=== PATIENT | female | born 1950 | race Caucasian/White ===

== ENCOUNTER 2019-03-21 01:17 | Outpatient (CLI) | payer MEDICARE, BC, SELFPAY ==
[2019-03-21 13:47] LABS: ALT 29 U/L (12-78); AST 22 U/L (15-37); Albumin 3.8 g/dL (3.4-5.0); Alkaline Phosphatase 102 U/L (46-116); Anion Gap 9.7 mmol/L (3-11); BUN 19 mg/dL (7-18); Bilirubin, Total 0.7 mg/dL (0.2-1.0); CO2 27.3 mmol/L (21.0-32.0); CREATININE 0.99 mg/dL (0.55-1.02); Chloride 103 mmol/L (98-107); Cholesterol 163 mg/dL (50-200); Estimated GFR 55.78 (mL/min/1.73m2); Glucose 87 mg/dL (70-100); HDL Cholesterol 64 mg/dL (40-60); LDL CHOLESTEROL 83 mg/dL (<100); Magnesium 1.7 mg/dL (1.8-2.4); Potassium 4.6 mmol/L (3.5-5.1); Sodium 140 mmol/L (136-145); Total Protein 6.9 g/dL (6.4-8.2); Triglyceride 84 mg/dL (30-150); Vitamin B12 461 pg/mL (193-986)
[2019-03-24 13:01] LABS: Vitamin D 25 Total 17.4 ng/ml (30-100)
== END 2019-03-21 01:37 ==
PROVIDERS: PCP Family Medicine; Visit Provider Family Medicine
DX: E55.9 Vitamin D deficiency, unspecified (principal); K63.89 Other specified diseases of intestine; K91.2 Postsurgical malabsorption, not elsewhere classified
CPT/HCPCS: 36415; 80053; 80061; 82306; 83721; 82607; 83735

== ENCOUNTER 2020-03-23 01:45 | Outpatient (CLI) | payer MEDICARE, BC, SELFPAY ==
[2020-03-23 08:44] LABS: HGB 13.7 g/dL (12.0-15.5); Mean Corp. HGB Concentration 32.6 g/dL (32.0-36.0); Mean Corpuscular Hemoglobin 30.6 pg (27.0-33.0); Mean Corpuscular Volume 93.8 fL (80-95); Mean Platelet Volume 10.9 fL (8.0-11.0); Platelet Count 207 x1000/uL (130-400); RBC 4.48 m/cumm (4.00-5.20); RBC Distribution Width 13.4 % (11.7-14.6); White Blood Cell Count 7.01 k/cumm (4.4-10.8)
[2020-03-23 10:19] LABS: ALT 38 U/L (14-59); AST 23 U/L (15-37); Albumin 3.8 g/dL (3.4-5.0); Alkaline Phosphatase 97 U/L (46-116); Anion Gap 6.1 mmol/L (3-11); BUN 21 mg/dL (7-18); Bilirubin, Total 0.8 mg/dL (0.2-1.0); CO2 28.9 mmol/L (21.0-32.0); CREATININE 1.02 mg/dL (0.55-1.02); Calcium 9.2 mg/dL (8.5-10.1); Chloride 103 mmol/L (98-107); Estimated GFR 53.73 (mL/min/1.73m2); Glucose 86 mg/dL (74-106); Magnesium 1.9 mg/dL (1.8-2.4); Potassium 4.1 mmol/L (3.5-5.1); Sodium 138 mmol/L (136-145); Total Protein 6.9 g/dL (6.4-8.2); Vitamin B12 555 pg/mL (193-986)
[2020-03-25 14:42] LABS: Vitamin D 25 Total 34.6 ng/ml (30-100)
== END 2020-03-23 02:05 ==
PROVIDERS: PCP Family Medicine; Visit Provider Family Medicine
DX: E55.9 Vitamin D deficiency, unspecified (principal); G25.81 Restless legs syndrome; K55.9 Vascular disorder of intestine, unspecified; K63.89 Other specified diseases of intestine; K91.2 Postsurgical malabsorption, not elsewhere classified
CPT/HCPCS: 36415; 80053; 82306; 85027; 82607; 83735

== ENCOUNTER 2020-08-23 02:07 | Outpatient (CLI) | payer MEDICARE, BC, SELFPAY ==
[2020-08-23 12:44] LABS: Vitamin D 25 Total 33.2 ng/ml (30-100)
== END 2020-08-23 02:27 ==
PROVIDERS: PCP Family Medicine; Visit Provider Family Medicine
DX: E55.9 Vitamin D deficiency, unspecified (principal)
CPT/HCPCS: 36415; 82306

== ENCOUNTER 2021-06-24 13:28 | Outpatient (CLI) | payer MEDICARE, BC, SELFPAY ==
--- NOTE | 2021-06-24 14:52 | DI.RAD_ITS ---
Exam(s) XR SHOULDER RT COMPLETE 2+V EXAM: XR SHOULDER RT COMPLETE 2+V CLINICAL HISTORY: r shoulder pain; surgery 20 years ago M25.511 PAIN RT SHOULDER TECHNIQUE: COMPARISON: No exams were available for comparison FINDINGS: Five views were obtained. Note is made of a prior resection of the distal aspect of the clavicle. T here appears to be slight narrowing of the glenohumeral cartilaginous joint space. Mild marginal ost eophytes are noted the glenoid humeral head. No other significant bony or soft tissue abnormality se en. IMPRESSION: RADIATION DOSE DELIVERED: Total DLP
== END 2021-06-24 13:48 ==
PROVIDERS: PCP Family Medicine; Visit Provider Family Medicine
DX: M25.511 Pain in right shoulder (principal); M25.711 Osteophyte, right shoulder; M19.011 Primary osteoarthritis, right shoulder
CPT/HCPCS: 73030

== ENCOUNTER 2021-08-19 01:10 | Outpatient (CLI) | payer MEDICARE, BC, SELFPAY ==
--- NOTE | 2021-08-19 07:30 | DI.MRI_ITS ---
Exam(s) MR UPPER JOINT RT WO EXAM: MR UPPER JOINT RT WO CLINICAL HISTORY: ROTATOR CUFF TEAR/FAILED PT,RT SHOULDER PAIN,M25.511,M12.819,M75.100,ARTHRO. TECHNIQUE: Multiplanar multisequence MRI was performed. COMPARISON: CR XR SHOULDER RT COMPLETE 2+V from 06/24/2021 CR XR SHOULDER RT COMPLETE 2+V from 06/24/2021 FINDINGS: BONES: There is no fracture or contusion pattern. Subchondral cysts are seen in the greater tuberosi ty. There are postsurgical changes of the acromioclavicular joint. JOINTS: Postsurgical changes are seen at the acromioclavicular joint. The glenohumeral joint is norm al. TENDONS: Supraspinatus: There is tendinosis of the supraspinatus. There is hyperintense signal seen at the ar ticular surface of the tendon suspicious for partial tear. Infraspinatus: There is tendinosis of the infraspinatus tendon. Subscapularis: Unremarkable. Teres Minor: Unremarkable. Biceps and Weir: Unremarkable. MUSCLES: Unremarkable. GLENOID LABRUM: Unremarkable on this noncontrast examination. SOFT TISSUES: Unremarkable. LIGAMENTS: Unremarkable. OTHER: There is fluid seen in the subacromial subdeltoid bursa. IMPRESSION: 1. Tendinosis of the supraspinatus and infraspinatus tendons. 2. Findings suspicious for partial or bursal surface tear of the supraspinatus tendon. 3. Postsurgical changes at the acromioclavicular joint. 4. Large amount of fluid seen in the subacromial subdeltoid bursa. DATA REPOSITORY:
== END 2021-08-19 01:30 ==
PROVIDERS: PCP Family Medicine; Visit Provider Family Medicine
DX: M25.511 Pain in right shoulder (principal); M75.101 Unspecified rotator cuff tear or rupture of right shoulder, not specified as traumatic; M25.411 Effusion, right shoulder; M75.81 Other shoulder lesions, right shoulder; Z98.890 Other specified postprocedural states
CPT/HCPCS: 73221

== ENCOUNTER → 2021-08-24 10:53 | Outpatient (BNVA) | payer MEDICARE, BC, SELFPAY | PROVIDERS: PCP Family Medicine; Referring Provider Family Medicine; Visit Provider Student in an Organized Health Care Education/Training Program | DX: M75.111 Incomplete rotator cuff tear or rupture of right shoulder, not specified as traumatic (principal); M75.51 Bursitis of right shoulder | CPT/HCPCS: 99203 ==

== ENCOUNTER → 2021-10-12 08:57 | Outpatient (BNVA) | payer MEDICARE, BC, SELFPAY | PROVIDERS: PCP Family Medicine; Referring Provider Family Medicine; Visit Provider Student in an Organized Health Care Education/Training Program | DX: M19.011 Primary osteoarthritis, right shoulder (principal); M75.21 Bicipital tendinitis, right shoulder; M75.51 Bursitis of right shoulder; M75.111 Incomplete rotator cuff tear or rupture of right shoulder, not specified as traumatic | CPT/HCPCS: 20610; 99213; J1030 ==

== ENCOUNTER → 2021-12-14 09:01 | Outpatient (BNVA) | payer MEDICARE, SELFPAY | PROVIDERS: PCP Family Medicine; Visit Provider Student in an Organized Health Care Education/Training Program | DX: M75.51 Bursitis of right shoulder (principal); M75.111 Incomplete rotator cuff tear or rupture of right shoulder, not specified as traumatic; M75.21 Bicipital tendinitis, right shoulder; M19.011 Primary osteoarthritis, right shoulder | CPT/HCPCS: 99214 ==

== ENCOUNTER 2022-01-26 02:02 | Outpatient (CLI) | payer MEDICARE, SELFPAY ==
--- NOTE | 2022-01-26 08:00 | DI.RAD_ITS ---
Exam(s) RF JOINT INJECTION FLUORO GUID EXAM: RF JOINT INJECTION FLUORO GUID CLINICAL HISTORY: R SHOULDER PAIN,m19.011,primary m19.011. TECHNIQUE: 2D and realtime digital imaging was performed. COMPARISON: No exams were available for comparison FINDINGS: Fluoroscopy was provided for Dr. Redding for guidance with performing a right shoulder injection. H dale copy image shows a needle projecting over the femoral head and contrast injection. Please see procedure note for details. Fluoro time 1 second RADIATION DOSE DELIVERED: helder Rios=1.07 mGy
--- NOTE | 2022-01-26 14:00 | W.PROCNOTE ---
Date of service: 01/26/22 Time of Service: 14:00 Procedure Note Procedure: Right Shoulder Injection Surgeon/Proceduralist/Physician: Jose Redding Procedure Diagnosis: Right Shoulder Pain Procedure Indications: Susannah has had persistent pain of the RIGHT shoulder. Noninvasive measures have been tried. To serve as both diagnostic and therapeutic, an injection under fluoroscopy was recommended. I had discussed the risks of the procedure and the patient elected to proceed. Procedure Description: Susannah was greeted in the flouroscopy room. The correct side was identified and the consent was reviewed with the patient and signed. The patient was then placed in the supine position on the fluoroscopy table. The RIGHT shoulder was then prepped with Chloraprep. The anterior injection starting point was identiifed by bony landmarks and fluoroscopy. The skin and soft tissue in the tract of the injection was anesthetized with 1% Lidocaine. A spinal needle was then inserted deep into the shoulder joint at the level of the recess between the glenoid and superior humeral head. A small amount of Omnipaque solution was injected to confirm intraarticular placement. This showed the contrast within the joint but also escaping subacromially and into the AC joint space. Then, the shoulder was injected with 4cc of 0.5% Bupivicaine and 80mg of Depo-Medrol. A bandaid was placed on the injection site. The patient tolerated the procedure well.
[2022-01-26] MEDS: Bupivacaine 0.5% Pres-Free 30 ML VIAL IJ (14:29)
[2022-01-26] MEDS: methylPREDNISolone ACETATE 80 MG/ML VIAL IM (14:30)
[2022-01-26] MEDS: Omnipaque 300 MG/ML 10 ML BTL IJ (14:30)
== END 2022-01-26 02:22 ==
PROVIDERS: PCP Family Medicine; Visit Provider Student in an Organized Health Care Education/Training Program
DX: M25.511 Pain in right shoulder (principal)
CPT/HCPCS: 20610; 77002; J1040

== ENCOUNTER → 2022-03-07 13:24 | Outpatient (BNVA) | payer MEDICARE, SELFPAY | PROVIDERS: PCP Family Medicine; Referring Provider Family Medicine; Visit Provider Student in an Organized Health Care Education/Training Program | DX: M75.51 Bursitis of right shoulder (principal); M75.111 Incomplete rotator cuff tear or rupture of right shoulder, not specified as traumatic; M75.21 Bicipital tendinitis, right shoulder | CPT/HCPCS: 99213 ==

== ENCOUNTER 2022-05-09 02:46 | Outpatient (CLI) | payer MEDICARE, SELFPAY ==
[2022-05-09 12:29] LABS: HCT 40.9 % (36.0-46.0); MCH 29.7 pg (27.0-33.0); MCHC 31.8 % (32.0-36.0); MCV 94 fL (80-95); MPV 11.8 fL (8.0-11.0); Platelet Count 185 10^3/uL (130-400); RBC 4.37 10^6/uL (3.93-5.22); RDW 13.4 % (11.7-14.6); RDW-SD 45.8 fL
[2022-05-09 13:24] LABS: ALT 38 U/L (14-59); AST 26 U/L (15-37); Albumin 3.5 g/dL (3.4-5.0); Alkaline Phosphatase 93 U/L (46-116); Anion Gap 9.5 mmol/L (3-11); BUN 26 mg/dL (7-18); Bilirubin, Total 0.6 mg/dL (0.2-1.0); CO2 28.5 mmol/L (21.0-32.0); CREATININE 1.2 mg/dL (0.55-1.02); Calcium 8.6 mg/dL (8.5-10.1); Calculated LDL 72 mg/dL (<100); Chloride 106 mmol/L (98-107); Cholesterol 152 mg/dL (<200); Estimated GFR 44.29 (mL/min/1.73m2); Glucose 80 mg/dL (74-106); HDL Cholesterol 63 mg/dL (40-60); Potassium 3.8 mmol/L (3.5-5.1); Sodium 144 mmol/L (136-145); TSH (W/Ref FT4) 8.05 uIU/mL (0.36-3.74); Total Protein 6.7 g/dL (6.4-8.2); Triglyceride 85 mg/dL (<150); Vitamin B12 1484 pg/mL (193-986)
[2022-05-09 13:49] LABS: FREE T4 0.79 ng/dL (0.76-1.46)
[2022-05-11 05:24] LABS: Vitamin D 25 Total 32.4 ng/mL (30-100)
== END 2022-05-09 02:47 | disposition home or self-care (01) ==
LOC: LOS 02:46
PROVIDERS: PCP Family Medicine; Visit Provider Family Medicine
DX: E55.9 Vitamin D deficiency, unspecified (principal); K63.89 Other specified diseases of intestine; K91.2 Postsurgical malabsorption, not elsewhere classified; K55.9 Vascular disorder of intestine, unspecified; R63.4 Abnormal weight loss
CPT/HCPCS: 36415; 80053; 80061; 82306; 85027; 82607; 84439; 84443

== ENCOUNTER 2022-06-21 02:43 | Outpatient (CLI) | payer MEDICARE, SELFPAY ==
[2022-06-21 10:26] LABS: ALT 37 U/L (14-59); AST 22 U/L (15-37); Albumin 3.6 g/dL (3.4-5.0); Alkaline Phosphatase 101 U/L (46-116); Anion Gap 6.4 mmol/L (3-11); BUN 21 mg/dL (7-18); Bilirubin, Total 0.5 mg/dL (0.2-1.0); CO2 31.6 mmol/L (21.0-32.0); CREATININE 1.1 mg/dL (0.55-1.02); Calcium 9.1 mg/dL (8.5-10.1); Chloride 106 mmol/L (98-107); Estimated GFR 48.96 (mL/min/1.73m2); Glucose 104 mg/dL (74-106); Potassium 4.1 mmol/L (3.5-5.1); Sodium 144 mmol/L (136-145); TSH (W/Ref FT4) 1.59 uIU/mL (0.36-3.74); Total Protein 7.1 g/dL (6.4-8.2)
== END 2022-06-21 02:44 | disposition home or self-care (01) ==
LOC: LBO 02:43
PROVIDERS: PCP Family Medicine; Visit Provider Family Medicine
DX: N28.9 Disorder of kidney and ureter, unspecified (principal); E03.9 Hypothyroidism, unspecified
CPT/HCPCS: 36415; 80053; 84443

== ENCOUNTER → 2022-08-16 10:29 | Outpatient (BNVA) | payer MEDICARE, SELFPAY | PROVIDERS: PCP Family Medicine; Referring Provider Family Medicine; Visit Provider Surgery | DX: K91.2 Postsurgical malabsorption, not elsewhere classified (principal); Z12.11 Encounter for screening for malignant neoplasm of colon ==

== ENCOUNTER 2022-08-23 03:25 | Outpatient (CLI) | payer MEDICARE, SELFPAY ==
[2022-08-23 12:50] LABS: CREATININE 0.9 mg/dL (0.55-1.02); Estimated GFR 67.92 (mL/min/1.73m2); TSH (W/Ref FT4) 1.89 uIU/mL (0.36-3.74)
== END 2022-08-23 03:26 | disposition home or self-care (01) ==
LOC: LOS 03:25
PROVIDERS: PCP Family Medicine; Visit Provider Family Medicine
DX: E03.9 Hypothyroidism, unspecified (principal); Z01.812 Encounter for preprocedural laboratory examination
CPT/HCPCS: 36415; 82565; 84443

== ENCOUNTER 2022-08-31 09:05 | Day surgery (SDC) | payer MEDICARE, SELFPAY ==
--- NOTE | 2022-08-30 20:49 | W.PM.DSUDISC ---
Date of service: 08/31/22 Time of Service: 10:35 Discharge Plan Disposition Patient Disposition: HOME Condition: Good Discharge Details Reason For Visit: Screening colonoscopy Attending Provider: Jonh Renee Primary Care Provider: Carol Ann Shah Home Meds and New Rx's Prescriptions: Continued Adult 50 Plus Probiotic 4 billion cell capsule 4,000 mmu cells PO DAILY Rx Instructions: administer with a meal vitamin K2 100 mcg capsule 100 mcg PO DAILY Label Comments: (MK7) Magnesium 225 mcg PO Label Comments: (Citrate, Glycinate, Malate) Plus Zinc 7.5mg Plus D3 25mcg Ibuprofen PM 200-25 mg capsule 1 cap PO QHS PRN tretinoin 20 GM cream 1 applic Topical DAILY Vitamin C Cream 1 applic Topical DAILY Centrum Silver 0.4-300-250 mg-mcg-mcg tablet 1 tab PO DAILY cholecalciferol (vitamin D3) 50 mcg (2,000 unit) tablet 50 mcg PO DAILY Qty: 90 4RF ergocalciferol (vitamin D2) [Vitamin D2] 1,250 mcg (50,000 unit) capsule 50,000 unit PO QWEEK Qty: 12 12RF levothyroxine 50 mcg tablet 50 mcg PO DAILY Qty: 90 6RF estradiol [Vagifem] 10 mcg tablet 10 mcg VG twice weekly Qty: 24 12RF cyanocobalamin (vitamin B-12) 1,000 mcg capsule 2,000 mcg PO DAILY acetaminophen [Tylenol] 325 MG tablet 650 mg PO Q4H PRN PRNQty: 30 0RF Discontinued polyethylene glycol 3350 17 gram/dose powder 238 g PO ONCE Qty: 238 0RF Rx Instructions: take per colonoscopy instructions bisacodyl [Dulcolax (bisacodyl)] 5 mg tablet,delayed release (DR/EC) 5 mg PO ONCE Qty: 4 0RF Rx Instructions: take per colonoscopy instructions Discharge Instructions Instructions: Colorectal Polyps (DC) Additional Instructions: 1. If tolerated, consume a soft, low fiber diet for 1-2 days. 2[address] Do not drive, drink alcohol, operate machinery, make critical decisions, or do activities that require coordination or balance for 24 hours. 3. Because air was put into your colon during the procedure, expelling air from your rectum (passing gas or farting) is normal. 4. You may not have a bowel movement for 1-3 days because of the colonoscopy prep. This is normal. 5. Go directly to the emergency room if you notice any of the following: Develop chills (warm to touch), or if you have a thermometer and your temperature is above 101 Difficulty breathing or difficultly swallowing Persistent vomiting Severe abdominal pain, other than gas cramps Severe chest pain Black, tarry stools Any bleeding ? exceeding one tablespoon 6. Call your physician if the site where your intravenous was started becomes red, swollen, painful, and warm to touch. 7. Your physician has reviewed your pre-procedure medications. Please continue to take those medications as previously ordered. You will be given specific information/education regarding any changes to your medications before leaving. Activity:: Activity as Tolerated Diet:: As Tolerated Discharge Orders Discharge Orders: Discharge Order (Routine); Ordered 08/30/22 Ordered By: Jonh Renee DS: Diagnosis Discharge Diagnosis (1) Colorectal polyp detected on colonoscopy: Status: Acute Asessment and Plan: I will contact you with results of the biopsy once they are available.
--- NOTE | 2022-08-30 20:50 | W.COLOREPORT ---
Date of service: 08/31/22 Time of Service: 10:36 Colonoscopy Report Date of procedure: 08/31/22 Pre-op diagnosis general: Screening colonoscopy routine health maintenance Post-op diagnosis procedure note: other (Colorectal polyp) Procedure: Screening colonoscopy Surgeon: Jonh Renee Anesthesia Type: General:No Airway Estimated blood loss (mL): 10 Pathology: other (Rectal polyp at 15 cm) Complications: None Disposition: same day Indications: Susannah is a 72-year-old woman who was undergone screening colonoscopy in the past. In the interim, she developed a GI volvulus requiring extensive small bowel resection and jejunal colon anastomosis. She is presenting today for a routine screening colonoscopy. Prep: Miralax/Dulcolax Procedure Start Time: 10:06 Procedure End Time: :27 Retraction Time: 19 Procedure Description: After the induction of monitored anesthetic care, and with the patient in left lateral decubitus position, I began by performing an external anorectal exam.? Perineum and skin were normal, as was the anal verge.? There was no evidence of external hemorrhoids.? Next, I performed a digital rectal exam.? I did not appreciate any abnormal findings.? Next, I advanced a colonoscope into the rectal vault.? I performed retroflexion.? I did not see signs of pathologic internal hemorrhoids.? Using insufflation, I then advanced the colonoscope beyond the rectal folds and into the sigmoid colon before advancing towards the proximal colon.? The quality of the prep was adequate.? The scope was advanced to the staple line of the previous small bowel colonic anastomosis.? I then began withdrawing the colonoscope using repeated irrigation as necessary for full evaluation of the colonic mucosa. ?Once the scope was withdrawn to the level of the rectum, great care was taken to examine portions of the rectal folds.?Around 15 cm from the anal verge I identified a 0.5 polyp. ?It appeared sessile in character. ?I was able to remove this with a cold forcep. ?I examined the site, and there was minimal bleeding. ?Once this was completed, I continued to withdraw the scope and examine the remainder of the colonic mucosa. Finally, the scope was withdrawn and the patient was brought to the same-day surgery recovery unit as the anesthetic wore off. ?The findings and instructions were shared with the patient prior to discharge.
[2022-08-31 09:33] VITALS: BP 123/74; PULSE 78; RESP 15; TEMP 36.6; O2SAT 98
[2022-08-31] MEDS: Lactated Ringers 1,000 ML 80 ML IV (09:37)
--- NOTE | 2022-08-31 09:38 | W.ANESPRE ---
General Info Date of Service Date Performed: 08/31/22 Height: 5 ft 11 in Weight: 57.9 kg Body Mass Index (BMI): 17.8 Surgical Procedure: Operation Date: 08/31/22 10:20 Proposed Procedure Side Surgeon john Renee MD Meds Allergies and Home Medications Allergies Allergy/AdvReac Type Severity Reaction Status Date / Time No Known Drug Allergies Allergy Unverified 08/31/22 09:32 Home Medication Medication Instructions Recorded acetaminophen 325 mg tablet 650 mg PO Q4H PRN PRN #30 tabs 10/08/14 (Tylenol) Vitamin C Cream 1 applic topical DAILY 12/23/15 tretinoin 0.05 % topical cream 1 applic topical DAILY 12/23/15 papqlkfy-qoy-rsfpy acid 0.4 1 tab PO DAILY 08/18/20 mg-lycopene 300 mcg-lutein 250 mcg tablet (Centrum Silver) cholecalciferol (vitamin D3) 50 50 mcg PO DAILY #90 tabs 11/10/20 mcg (2,000 unit) tablet Magnesium 225 mcg PO 04/11/21 vitamin K2 100 mcg capsule 100 mcg PO DAILY 04/11/21 ibuprofen 200 mg-diphenhydramine 1 cap PO QHS PRN 10/12/21 HCl 25 mg capsule (Ibuprofen PM) ergocalciferol (vitamin D2) 1,250 50,000 unit PO QWEEK #12 tab-caps 01/10/22 mcg (50,000 unit) capsule (Vitamin D2) levothyroxine 50 mcg tablet 50 mcg PO DAILY #90 tabs 05/11/22 estradiol 10 mcg vaginal tablet 10 mcg vaginal twice weekly #24 06/13/22 (Vagifem) tab-caps cyanocobalamin (vitamin B-12) 2,000 mcg PO DAILY 08/16/22 1,000 mcg capsule lactobacillus combination no.9 4 4,000 mmu cells PO DAILY 08/16/22 billion cell capsule (Adult 50 Plus Probiotic) Current Visit Medications: Current Medications Generic Name Dose Route Start Last Admin Trade Name Freq PRN Reason Stop Dose Admin Hyoscyamine Sulfate 0.125 mg 08/31/22 06:00 Hyoscyamine 0.125 Mg Sl/Oral/Chew SL DIRECTED PRN Ringer's Solution 1,000 mls @ 80 mls/hr 08/31/22 06:00 IV 12/02/22 23:59 INFUSION RONN IV Miscellaneous Supplies 1 each 08/31/22 06:00 Iv Access IV 09/29/22 23:59 DIRECTED RONN Ondansetron HCl 4 mg 08/30/22 20:51 Ondansetron 4 Mg/2 Ml Vial IVP Q4H PRN PRN Nausea / Vomiting Sodium Chloride 0 ml 08/31/22 06:00 Normal Saline Flush 10 Ml Syr IV 09/29/22 23:59 PRN PRN Sodium Chloride 0 ml 08/31/22 06:00 Normal Saline 10 Ml Vial IJ 09/29/22 23:59 DIRECTED PRN Sterile Water 0 ml 08/31/22 06:00 Water,Injection,Sterile 10 Ml Vial IJ 09/29/22 23:59 DIRECTED PRN PFSH Active Problems Active Problems: Problem Status Onset Code Renal insufficiency N28.9 Hypothyroid E03.9 Encounter for screening colonoscopy Z12.11 Arthritis of right shoulder region M19.011 Tendonitis of long head of biceps brachii of right shoulder M75.21 Bursitis of right shoulder M75.51 Rotator cuff tear, right M75.101 Weight loss R63.4 Aphthous ulcer K12.0 Mouth sores K13.79 Wart B07.9 Hip pain M25.559 Vitamin D deficiency 09/17/15 E55.9 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 Vaginal atrophy 01/16/17 N95.2 Small intestinal bacterial overgrowth 12/08/14 K63.89 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 Restless legs syndrome 05/23/12 G25.81 Knee pain 05/23/12 M25.569 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 Abnormal thyroid function test 05/23/12 Migraines G43.909 Medical History Medical History Abnormal Pap history Fibrocystic disease of breast Migraine Surgical History Surgical History Bi[place] of [place] [facility] [place] with adenosis and cysts Cervical Procedure Colposcopy/ Biopsies for AMMON 1 1996 Colectomy SMALL BOWEL RESECTION -10/03/14 Shoulder surgery right; distal clavicle resection Tobacco Smoking/Tobacco Use Status: Never Passive smoking exposure: No Second hand exposure: No Alcohol Alcohol Intake: current Alcohol intake frequency: a few times a month Alcohol type: beer, wine and hard liquor Substance Use Substance use: Never Substance use type: does not use Vital Signs and Lab Results Vital Signs Most Recent Vital Signs in EMR: Most Recent Vital Signs Temp Pulse Resp BP Pulse Ox 36.6 C 78 15 123/74 98 08/31/22 09:33 08/31/22 09:33 08/31/22 09:33 08/31/22 09:33 08/31/22 09:33 Lab Results Blood Type / Crossmatch: No Data to Display Complete Blood Count: No Data to Display Complete Metabolic Panel: Creatinine 0.9 mg/dL (0.55-1.02) 08/23/22 10:44 Est GFR (CKD-EPI 2020) 67.92 (mL/min/1.73m2) 08/23/22 10:44 Liver Function Panel: No Data to Display Coagulation Panel: No Data to Display Cardiac Panel: No Data to Display Arterial Blood Gas: No Data to Display Venous Blood Gas: No Data to Display Pancreas Panel: No Data to Display Thyroid Panel: Thyroid Stimulating Hormone (TSH) 1.89 uIU/mL (0.36-3.74) 08/23/22 10:44 Infectious Disease: No Data to Display Blood Cultures: No Data to Display Toxicology Panel: No Data to Display Anesthesia Assessment and Plan Anesthesia History Personal History: No History of Anesthesia Complications Family History: No Family History of Anesthesia Complications Exercise Tolerance Exercise Tolerance: Metabolic Equivalents>4 Pertinent Negatives Pertinent Negatives: No Symptoms of GERD, No Major Cardiovascular Symptoms or Complaints, No Major Pulmonary Symptoms or Complaints and No History of CVA/TIA Cardiac & Pulmonary Exam Cardiac Exam: Normal S1/S2 Heart Sounds Pulmonary Exam: Clear Bilateral Breath Sounds Implantable Cardiac Device Does patient have a Pacemaker or an ICD?: No Airway Exam Known Difficult Airway: No Mallampati Class: 2 Mouth Opening: Normal (> 3cm) Thyromental Distance: Greater than 3 cm Neck Range of Motion: Full ROM Neck Circumference: Normal Teeth Condition: Normal Dentition ASA Classification ASA Score: ASA 2 Emergency Case?: No NPO Status NPO Status: NPO Clears >2 hours, Solids >8 hours Anesthesia Plan Resuscitation Status: Full Code Anesthesia Technique: General Anesthesia Airway Planned: Natural Airway Monitors Used: Standard Monitors
[2022-08-31 09:39] VITALS: BMI 17.8
--- NOTE | 2022-08-31 10:28 | BOWEL_PTH ---
PATIENT: Susannah Pinedo LOC: [facility] U#:[id number] AGE/SX: 72/F ROOM: RE08/31/[address]: Jonh Renee MD : 1950 BED: DIS: 08/31/2022 SPEC #: [id number] RECD: 08/31/22 12:57 STATUS: NAZIA RE #: [id number] STEPHANIA: 08/31/22 10:[address]: Jonh Renee DEPT: Surgical Specimen RECD BY: Lucy Wen ENTERED: 08/31/22 12:57 SP TYPE: Bowel OTHR DR: Carol Ann Shah MD, DC Tissues: 1 - BIOPSY BOWEL Procedures: GROSS AND MICRO LEVEL 4 Comments: [id number]
[2022-08-31 10:34] VITALS: BP 101/69; PULSE 70; RESP 16; TEMP 36.2; O2SAT 96
[2022-08-31 11:04] VITALS: BP 130/73; PULSE 66; RESP 16; TEMP 36.2; O2SAT 100
--- NOTE | 2022-08-31 11:06 | W.ANESPOSTOP ---
Postoperative Evaluation Date, Time and Location Date Performed: 08/31/22 Time Performed: 10:34 Patient Location: Day Surgery Unit Vital Signs Most Recent Imported Vital Signs: Most Recent Vital Signs Temp Pulse Resp BP Pulse Ox 36.2 C L 70 16 101/69 96 08/31/22 10:34 08/31/22 10:34 08/31/22 10:34 08/31/22 10:34 08/31/22 10:34 Pain Score Most Recent Pain Score: Most Recent Pain Score Pain Level 0 08/31/22 10:34 Assessment Mental Status: Awake (Alert & Oriented to Patient Baseline) Airway and Respiratory Function: Patent airway with normal (patient baseline) respiratory exam Cardiovascular Function: Hemodynamically Stable Hydration Status: Adequately Hydrated Nausea & Vomiting: No Nausea or Vomiting Pain: Pt. Denies Any Pain Peripheral Nerve Block: Patient did not receive a nerve block
== END 2022-08-31 11:55 | disposition home or self-care (01) ==
PROVIDERS: PCP Family Medicine; Visit Provider Surgery
PROC: 0DJD8ZZ Inspection of Lower Intestinal Tract, Via Natural or Artificial Opening Endoscopic (ICD-10-PCS; CPT 45378; principal; 2022-08-31 10:15)
DX: Z12.11 Encounter for screening for malignant neoplasm of colon (principal); K63.5 Polyp of colon; K63.89 Other specified diseases of intestine
CPT/HCPCS: 45380; 88305

== ENCOUNTER 2022-11-15 09:31 | Outpatient (CLI) | payer MEDICARE, SELFPAY ==
--- NOTE | 2022-11-15 09:15 | DI.RAD_ITS ---
Exam(s) XR SHOULDER LT COMPLETE 2+V EXAM: XR SHOULDER LT COMPLETE 2+V CLINICAL HISTORY: right shoulder pain. TECHNIQUE: 2D digital imaging was performed. COMPARISON: CR XR SHOULDER RT COMPLETE 2+V from 06/24/2021 FINDINGS: Two views: No evidence of acute fracture or dislocation nor significant degenerative changes. There is, however , calcification noted in the subacromial space consistent with probable calcific tendinitis-bursitis. The subacromial space is not diminished in height. Bone density normal. No osseous lesions. IMPRESSION: Subacromial calcification consistent with probable calcific rotator cuff tendinitis-bursitis. DATA REPOSITORY: RADIATION DOSE DELIVERED:
== END 2022-11-15 09:32 | disposition home or self-care (01) ==
LOC: DIORS 09:32
PROVIDERS: PCP Family Medicine; Visit Provider Student in an Organized Health Care Education/Training Program
DX: M75.32 Calcific tendinitis of left shoulder (principal)
CPT/HCPCS: 20610; 99213; 73030; J1030

== ENCOUNTER 2023-01-01 01:52 | Outpatient (CLI) | payer MEDICARE, SELFPAY ==
--- NOTE | 2023-01-01 07:15 | DI.MRI_ITS ---
Exam(s) MR UPPER JOINT LT WO EXAM: MR UPPER JOINT LT WO CLINICAL HISTORY: PAIN, ? ROTATOR CUFF TEAR,CALCIFIC TENDINITIS, M75.32. TECHNIQUE: Multiplanar multisequence MRI was performed. COMPARISON: Plain films 15 November 2022 FINDINGS: BONES: There is no fracture or contusion pattern. JOINTS:The acromioclavicular joint shows mild spurring. The glenohumeral joint is normal. TENDONS: Supraspinatus: Coarse calcifications demonstrating a thickened supraspinatus tendon. No evidence of tear. Infraspinatus: Unremarkable. Subscapularis: Unremarkable. Teres Minor: Unremarkable. Biceps and [place]: Unremarkable. MUSCLES: Unremarkable. GLENOID LABRUM: Unremarkable on this noncontrast examination. SOFT TISSUES: Unremarkable. OTHER: Subacromial and subdeltoid bursae shows a small amount of fluid.. IMPRESSION: Supraspinatus calcific tendinosis. DATA REPOSITORY:
== END 2023-01-01 02:12 ==
LOC: DI 01:52
PROVIDERS: PCP Family Medicine; Visit Provider Student in an Organized Health Care Education/Training Program
DX: M75.32 Calcific tendinitis of left shoulder (principal); M25.512 Pain in left shoulder
CPT/HCPCS: 73221

== ENCOUNTER → 2023-01-10 09:07 | Outpatient (BNVA) | payer MEDICARE, SELFPAY | PROVIDERS: PCP Family Medicine; Referring Provider Family Medicine; Visit Provider Student in an Organized Health Care Education/Training Program | DX: M19.012 Primary osteoarthritis, left shoulder (principal); M75.32 Calcific tendinitis of left shoulder; M62.562 Muscle wasting and atrophy, not elsewhere classified, left lower leg | CPT/HCPCS: 99213 ==

== ENCOUNTER 2023-03-01 00:51 | Outpatient (CLI) | payer MEDICARE, SELFPAY ==
--- NOTE | 2023-03-01 13:33 | DI.RAD_ITS ---
Exam(s) RF JOINT INJECTION FLUORO GUID EXAM: RF JOINT INJECTION FLUORO GUID CLINICAL HISTORY: L SHOULDER INJ UNDER FLUORO,ARTHRITIS LT GLENOHUMERAL JOINT,M19.012 TECHNIQUE: 2D and realtime digital imaging was performed. CONTRAST MATERIAL: Refer to procedure report. COMPARISON: No exams were available for comparison FINDINGS: Fluoroscopy was provided for Dr. Mejia during the performance of a left shoulder injection. Please refer to the procedure report for complete details. Ka,r=0.51 mGy IMPRESSION:
[2023-03-01] MEDS: Omnipaque 300 MG/ML 10 ML BTL IJ (13:35)
[2023-03-01] MEDS: methylPREDNISolone ACETATE 80 MG/ML VIAL IM (13:35)
[2023-03-01] MEDS: Bupivacaine 0.5% Pres-Free 10 ML VIAL 5 ML IJ (13:36)
--- NOTE | 2023-03-01 14:48 | W.PROCNOTE ---
Date of service: 03/01/23 Time of Service: 13:40 Procedure Note Date of procedure: 03/01/23 Procedure: Left Shoulder Injection Surgeon/Proceduralist/Physician: Jose Redding Procedure Diagnosis: Left shoulder arthritis Procedure Indications: Susannah has had persistent pain of the LEFT shoulder. Noninvasive measures have been tried. To serve as both diagnostic and therapeutic, an injection under fluoroscopy was recommended. I had discussed the risks of the procedure and the patient elected to proceed. Procedure Description: Susannah was greeted in the flouroscopy room. The correct side was identified and the consent was reviewed with the patient and signed. The patient was then placed in the supine position on the fluoroscopy table. The LEFT shoulder was then prepped with Chloraprep. The anterior injection starting point was identiifed by bony landmarks and fluoroscopy. The skin and soft tissue in the tract of the injection was anesthetized with 1% Lidocaine. A spinal needle was then inserted deep into the shoulder joint at the level of the recess between the glenoid and superior humeral head. A small amount of Omnipaque solution was injected to confirm intraarticular placement. Once confirmed, the shoulder was injected with 5cc of 0.5% Bupivicaine and 80mg of Depo-Medrol. A bandaid was placed on the injection site. The patient tolerated the procedure well and noted improvement in pre-injection pain.
== END 2023-03-01 01:11 ==
LOC: DI 00:51
PROVIDERS: PCP Family Medicine; Visit Provider Student in an Organized Health Care Education/Training Program
DX: M19.012 Primary osteoarthritis, left shoulder (principal); M25.512 Pain in left shoulder
CPT/HCPCS: 20610; 77002; J1040

== ENCOUNTER → 2023-06-12 01:11 | Outpatient (CLI) | payer MEDICARE, SELFPAY ==
--- NOTE | 2023-06-12 13:31 | DI.RAD_ITS ---
Exam(s) XR CHEST 2V PA LATERAL EXAM: XR CHEST 2V PA LATERAL CLINICAL HISTORY: congestion,j39.8 TECHNIQUE: 2D digital imaging was performed. COMPARISON: No exams were available for comparison FINDINGS: HEART: Normal size. Aorta: Not dilated. PULMONARY VASCULATURE: Normal. LUNGS: Hyperinflated but clear. PLEURAL SPACE: No pleural effusion or pneumothorax. BONE:Mild scoliosis and mild degenerative changes. IMPRESSION: No acute abnormality. DATA REPOSITORY: RADIATION DOSE DELIVERED:
== END ==
PROVIDERS: PCP Family Medicine; Visit Provider Family Medicine
DX: J39.8 Other specified diseases of upper respiratory tract (principal)
CPT/HCPCS: 71046

== ENCOUNTER 2023-06-12 03:14 | Outpatient (CLI) | payer MEDICARE, SELFPAY ==
[2023-06-12 13:51] LABS: HCT 39.9 % (36.0-46.0); HGB 12.8 g/dL (11.2-15.7); MCH 29.8 pg (27.0-33.0); MCHC 32.1 % (32.0-36.0); MCV 93 fL (80-95); MPV 10.3 fL (8.0-11.0); Platelet Count 221 10^3/uL (130-400); RBC 4.29 10^6/uL (3.93-5.22); RDW 13.2 % (11.7-14.6); RDW-SD 45.1 fL; WBC 7.51 10^3/uL (4.4-10.8)
[2023-06-12 14:31] LABS: ALT 34 U/L (14-59); AST 23 U/L (15-37); Albumin 3.4 g/dL (3.4-5.0); Alkaline Phosphatase 114 U/L (46-116); Anion Gap 8.4 mmol/L (3-11); BUN 17 mg/dL (7-18); Bilirubin, Total 0.4 mg/dL (0.2-1.0); CO2 29.6 mmol/L (21.0-32.0); CREATININE 1.1 mg/dL (0.55-1.02); Calcium 8.8 mg/dL (8.5-10.1); Chloride 106 mmol/L (98-107); Estimated GFR 53.39 (mL/min/1.73m2); Glucose 102 mg/dL (74-106); Sodium 144 mmol/L (136-145); TSH (W/Ref FT4) 3.36 uIU/mL (0.36-3.74); Total Protein 7.2 g/dL (6.4-8.2)
== END 2023-06-12 03:15 | disposition home or self-care (01) ==
LOC: LBO 03:14
PROVIDERS: PCP Family Medicine; Visit Provider Family Medicine
DX: R63.4 Abnormal weight loss (principal); R23.3 Spontaneous ecchymoses; K55.9 Vascular disorder of intestine, unspecified
CPT/HCPCS: 36415; 80053; 85027; 84443

== ENCOUNTER 2023-06-26 03:15 | Outpatient (CLI) | payer MEDICARE, SELFPAY ==
[2023-06-26 15:02] LABS: Vitamin D 25 Total 35.9 ng/mL (30-100)
== END 2023-06-26 03:16 | disposition home or self-care (01) ==
LOC: LBO 03:15
PROVIDERS: PCP Family Medicine; Visit Provider Family Medicine
DX: E55.9 Vitamin D deficiency, unspecified (principal)
CPT/HCPCS: 36415; 82306

== ENCOUNTER 2023-12-27 12:10 | Outpatient (REF) | payer MEDICARE, SELFPAY ==
--- NOTE | 2023-12-27 08:00 | SKI_PTH ---
PATIENT: Susannah Pinedo LOC: [facility] U#:[id number] AGE/SX: 73/F ROOM: RE12/27/[address]: Carol Ann Shah MD, DC : 1950 BED: DIS: 12/27/2023 SPEC #: [id number] RECD: 12/27/23 12:49 STATUS: NAZIA REQ #: [id number] STEPHANIA: 12/27/23 08:[address]: Carol Ann Shah DEPT: Surgical Specimen RECD BY: Lucy Wen Tissues: 1 - SKIN BIOPSY(SHAVE/PUNCH) Procedures: SKIN LEVEL 4 Comments: [id number]
== END 2023-12-27 12:11 | disposition home or self-care (01) ==
LOC: LBN 12:10
PROVIDERS: PCP Family Medicine; Referring Provider Family Medicine; Visit Provider Family Medicine
DX: C44.722 Squamous cell carcinoma of skin of right lower limb, including hip (principal)
CPT/HCPCS: 88305

== ENCOUNTER 2024-07-11 01:18 | Outpatient (CLI) | payer MEDICARE, SELFPAY ==
[2024-07-11 12:25] LABS: ALT 31 U/L (14-59); AST 21 U/L (15-37); Albumin 3.4 g/dL (3.4-5.0); Alkaline Phosphatase 104 U/L (46-116); Anion Gap 7.3 mmol/L (3-11); BUN 16 mg/dL (7-18); Bilirubin, Total 0.59 mg/dL (0.2-1.0); CO2 30.7 mmol/L (21.0-32.0); CREATININE 1.1 mg/dL (0.55-1.02); Chloride 102 mmol/L (98-107); Estimated GFR 53.06 (mL/min/1.73m2); Glucose 153 mg/dL (74-106); Potassium 4.3 mmol/L (3.5-5.1); Sodium 140 mmol/L (136-145); Total Protein 6.8 g/dL (6.4-8.2); Vitamin B12 1005 pg/mL (193-986); Vitamin D 25 Total 30.8 ng/mL (30-100)
== END 2024-07-11 01:19 | disposition home or self-care (01) ==
LOC: LBO 01:18
PROVIDERS: PCP Family Medicine; Visit Provider Family Medicine
DX: K91.2 Postsurgical malabsorption, not elsewhere classified (principal); E55.9 Vitamin D deficiency, unspecified; I10 Essential (primary) hypertension
CPT/HCPCS: 36415; 80053; 82306; 82607

== ENCOUNTER 2024-08-12 08:32 | Outpatient (CLI) | payer MEDICARE, SELFPAY ==
[2024-08-12 13:33] LABS: TSH (W/Ref FT4) 4.25 uIU/mL (0.36-3.74); Vitamin D 25 Total 38.7 ng/mL (30-100)
[2024-08-12 13:49] LABS: FREE T4 0.99 ng/dL (0.76-1.46)
[2024-08-12 16:50] LABS: Hemoglobin A1C 5.4 % (<5.7)
[2024-08-13 15:35] LABS: Albumin 59.3 % (55.8-66.1); Albumin g/dL 4.2 g/dL (3.6-5.2); Comment (See Note)
[2024-08-13 16:50] LABS: Immunotyping, Serum (See Note)
== END 2024-08-12 08:33 | disposition home or self-care (01) ==
LOC: LOS 08:32
PROVIDERS: PCP Family Medicine; Referring Provider Family Medicine; Visit Provider Family Medicine
DX: E11.9 Type 2 diabetes mellitus without complications (principal); E03.9 Hypothyroidism, unspecified; G62.9 Polyneuropathy, unspecified; E55.9 Vitamin D deficiency, unspecified; M79.673 Pain in unspecified foot
CPT/HCPCS: 36415; 82306; 83036; 84165; 84439; 84443; 86320

== ENCOUNTER 2025-02-28 15:32 | Observation (INO) | payer MEDICARE, SELFPAY ==
[2025-02-28] VITALS (12 sets, daily range): BP systolic 118–169; BP diastolic 76–98; PULSE 67–88; RESP 12–22; TEMP 36.5–36.9; O2SAT 97–100
--- NOTE | 2025-02-28 15:30 | DI.CT_ITS ---
Exam(s) CT BRAIN NECK CTA EXAM: CT BRAIN NECK CTA CLINICAL HISTORY: amnesia, OKEEFE, acute in onset. TECHNIQUE: Imaging Protocol: Axial CT angiography was performed with multi-slice acquisition and mu lti-planar and MIP reconstructions. CONTRAST MATERIAL: Intravenous: Omnipaque 350 Contrast volume:70 ml COMPARISON: MR MRI - BRAIN WO CONTRAST from 10/11/2017 FINDINGS: CT Head W/O and W contrast: Ventricles and Extra axial spaces: Normal in size and morphology for the patient's age. Hemorrhage: None. Cerebral parenchyma: No evidence of acute infarct or mass. Midline shift: None. Brainstem/Cerebellum: Small area of CSF attenuation in the posterior right cerebellar hemisphere cons istent with old lacunar infarct as seen on prior MRI. Calvarium: Normal. Visualized Paranasal sinuses/Mastoids: Clear. Soft Tissues: Unremarkable. Enhancement: Normal. CTA Brain W: Internal Carotid Arteries: Petrous: Normal. Cavernous: Normal. Cerebral: Normal. Middle Cerebral Arteries: Right: No aneurysm, occlusion or significant stenosis. Left: No aneurysm, occlusion or significant stenosis. Anterior Cerebral Arteries: Right: No aneurysm, occlusion or significant stenosis. Left: No aneurysm, occlusion or significant stenosis. Posterior cerebral Arteries: Right: No aneurysm, occlusion or significant stenosis. Left: No aneurysm, occlusion or significant stenosis. Vertebral Arteries: Right: No aneurysm, occlusion or significant stenosis. Left: No aneurysm, occlusion or significant stenosis. Basilar Artery: No aneurysm, occlusion or significant stenosis. CTA Neck W: Common Carotid: Bilateral minimal web. Right: No dissection, occlusion or significant stenosis. Left: No dissection, occlusion or significant stenosis. External Carotid: Right: No dissection, occlusion or significant stenosis. Left: No dissection, occlusion or significant stenosis. Internal Carotid: Right: Small focus of calcific plaque proximally. No dissection, occlusion or significant stenosis. Left: No dissection, occlusion or significant stenosis. Vertebral Artery: Right: No dissection, occlusion or significant stenosis. Left: No dissection, occlusion or significant stenosis. Subclavian arteries: Mild plaque proximally. No significant stenosis Lung Apices: No acute findings. Bones: No acute abnormality. Degenerative disc changes. Soft Tissues: Normal. IMPRESSION: 1. CTA brain: Normal CTA examination of the [place]. 2. Head CT: Unremarkable CT Head. 3. CTA neck: Mild calcific plaque at the origins of the subclavian arteries. Small focus of plaque a t the right proximal internal carotid artery. Tiny bilateral webs in at the common carotid bulbs. N o evidence of dissection or significant stenosis. RADIATION DOSE DELIVERED: Total DLP DATA REPOSITORY: All CT scans at this facility are submitted to the National Radiology Data Registry (NRDR) Dose Index Registry (DIR) with the [employer] (ACR). RADIATION OPTIMIZATION: All CT scans at this facility use at least one of these dose optimization te chniques: automated exposure control; mA and/or kV adjustment per patient size (includes targeted exa ms where dose is matched to clinical indication); or iterative reconstruction.
--- NOTE | 2025-02-28 15:30 | RT.EKG_ITS ---
APPROVED REPORT Exam: Resting ECG Reason for Exam: confusion Patient Location: E HR:68 bpm ECG Measurements Heart Rate 68 AXIS NE 138 P 59 QRSd 88 QRS 69 QT 429 T 76 QTc 456 Conclusion Sinus rhythm...normal P axis, V-rate 60- 99 Anteroseptal infarct, age indeterminate...Q >35mS, T neg, V1-V2
[2025-02-28 15:57] LABS: Abs Immature Grans 0.03 10^3/uL (0.0-0.06); Absolute Basophil Count 0.04 10^3/uL (0.0-0.2); Absolute Eosinophil Count 0.02 10^3/uL (0.0-0.7); Absolute Lymphocyte Count 1.69 10^3/uL (1.2-3.4); Absolute Monocyte Count 0.52 10^3/uL (0.1-0.8); Absolute Neutrophil Count 5.96 10^3/uL (1.2-6.7); Basophils % 0.5 %; Eosinophils % 0.2 %; HCT 43.5 % (36.0-46.0); Immature Grans % 0.4 %; Lymphocytes % 20.5 %; MCH 30.2 pg (27.0-33.0); MCHC 32.2 % (32.0-36.0); MCV 94 fL (80-95); MPV 10.8 fL (8.0-11.0); Monocytes % 6.3 %; Neutrophils % 72.1 %; Platelet Count 223 10^3/uL (130-400); RBC 4.63 10^6/uL (3.93-5.22); RDW 13.1 % (11.7-14.6); RDW-SD 44.9 fL; WBC 8.26 10^3/uL (4.4-10.8)
[2025-02-28] MEDS: Omnipaque 350 MG/ML 100 ML BTL IJ (16:03)
[2025-02-28] MEDS: Normal Saline - Diluent 50 ML VIAL IJ (16:03)
[2025-02-28 16:17] LABS: ALT 32 U/L (14-59); AST 20 U/L (15-37); Albumin 3.9 g/dL (3.4-5.0); Alkaline Phosphatase 123 U/L (46-116); BUN 15 mg/dL (7-18); Bilirubin, Total 0.6 mg/dL (0.2-1.0); Calcium 9.6 mg/dL (8.5-10.1); Chloride 102 mmol/L (98-107); Estimated GFR 59.12 (mL/min/1.73m2); Glucose 157 mg/dL (74-106); Magnesium 1.9 mg/dL (1.8-2.4); Potassium 4.1 mmol/L (3.5-5.1); Sodium 138 mmol/L (136-145); Total Protein 7.5 g/dL (6.4-8.2); Troponin I 13 ng/L (<or=51)
[2025-02-28 16:32] LABS: TSH (W/Ref FT4) 7.79 uIU/mL (0.36-3.74)
--- NOTE | 2025-02-28 16:38 | DI.VRAD_ITS ---
PROCEDURE INFORMATION: Exam: CTA Head Without And With Contrast, Arteriography Exam date and time: 02/28/2025 3:44 PM Age: 74 years old Clinical indication: Stroke-like symptoms; Headache and other: Amnesia; Additional info: Amnesia, OKEEFE, acute in onset TECHNIQUE: Imaging protocol: Computed tomographic angiography of the head without and with contrast. Exam focused on the arteries. 3D rendering (Not supervised by radiologist): MIP and/or 3D reconstructed images were created by the technologist. Other technique: STROKE PROTOCOL was implemented. COMPARISON: No relevant prior studies available. FINDINGS: ANTERIOR CIRCULATION: Right internal carotid artery: Intracranial segment is patent with no significant stenosis or occlusion. No aneurysm. Right middle cerebral artery: No occlusion or significant stenosis. No aneurysm. Right anterior cerebral artery: No occlusion or significant stenosis. No aneurysm. Left internal carotid artery: Intracranial segment is patent with no significant stenosis. No aneurysm. Left middle cerebral artery: No occlusion or significant stenosis. No aneurysm. Left anterior cerebral artery: No occlusion or significant stenosis. No aneurysm. POSTERIOR CIRCULATION: Right vertebral artery: No occlusion or significant stenosis. No aneurysm. Left vertebral artery: No occlusion or significant stenosis. No aneurysm. Basilar artery: No occlusion or significant stenosis. No aneurysm. Right posterior cerebral artery: No occlusion or significant stenosis. No aneurysm. Left posterior cerebral artery: No occlusion or significant stenosis. No aneurysm. Veins: No evidence of venous sinus thrombosis. HEAD: Brain: No CT evidence of acute transcortical infarction. No acute intracranial hemorrhage, midline shift, or herniation. Cerebral volume is appropriate for the patient's age. Cerebral ventricles: Normal. No ventriculomegaly. Bones: Unremarkable. No acute fracture. Paranasal sinuses: Visualized sinuses are normal. No fluid levels. Mastoid air cells: Visualized mastoids are normal. No mastoid effusion. Soft tissues: Unremarkable. IMPRESSION: 1. No large vessel occlusion. 2. Unremarkable CT head. ASSESSMENT: ASPECTS ([place] Stroke Program Early CT Score) is 10. PROCEDURE INFORMATION: Exam: CTA Neck With Contrast Exam date and time: 02/28/2025 3:44 PM Age: 74 years old Clinical indication: Stroke-like symptoms; Headache and other: Amnesia; Additional info: Amnesia, OKEEFE, acute in onset TECHNIQUE: Imaging protocol: Computed tomographic angiography of the neck with contrast. Exam focused on the cervical segments of the vasculature. 3D rendering (Not supervised by radiologist): MIP and/or 3D reconstructed images were created by the technologist. COMPARISON: No relevant prior studies available. FINDINGS: Right common carotid artery: No stenosis. No dissection or occlusion. Right internal carotid artery: Mild shelf-like filling defect at the right internal carotid artery origin with minimal calcified proximal vessel plaque. No significant stenosis (0% by NASCET criteria). No aneurysm or dissection. Right external carotid artery: No occlusion or stenosis of the origin. Left common carotid artery: No stenosis. No dissection or occlusion. Left internal carotid artery: Mild shelf-like filling defect at the left internal carotid artery origin. No significant stenosis (0% by NASCET criteria). No aneurysm or dissection. Minimal vessel wall irregularity. Left external carotid artery: No occlusion or stenosis of the origin. Right vertebral artery: No stenosis. No dissection or occlusion. Question of proximal V3 vessel wall irregularity (series 10, image 90), versus artifact from metallic dental amalgam. Left vertebral artery: No stenosis. No dissection or occlusion. Right subclavian artery: Mixed calcified and atheromatous plaque at the right subclavian artery origin with mild vessel stenosis. No aneurysm or dissection. Left subclavian artery: Mild stenosis of the proximal left subclavian artery. No aneurysm or dissection. Aorta: Mild atherosclerosis of the visualized aortic arch. The great vessel origins are incompletely evaluated. Soft tissues: Normal. No significant soft tissue swelling. Bones/joints: Diffuse degenerative change of the cervical spine with moderate to severe right neural foraminal narrowing at C3-C4 through C5-C6 and likely moderate left bony neural foraminal narrowing at C3-C4 and C4-C5. IMPRESSION: 1. No significant arterial stenosis of the neck. 2. Mild vessel wall irregularity of the left internal carotid artery, as well as questionable vessel wall irregularity of the proximal right vertebral artery V3 segment. The imaging findings raise concern for changes of mild fibromuscular dysplasia. Likely small bilateral carotid webs may be related. 3. Diffuse degenerative change of the cervical spine. If symptomatic consider MRI for further characterization. REFERENCES: NASCET CRITERIA. The degree of stenosis in the cervical segment of the internal carotid artery is based on NASCET criteria. Normal is no stenosis. Mild is less than 50% stenosis. Moderate is 50-69% stenosis. Severe is 70% to 99% stenosis. Total occlusion is no detectable patent lumen. Dictated and Authenticated by: Aidan Linares MD. Orderin Ida Ayala MD
[2025-02-28 16:55] LABS: FREE T4 0.97 ng/dL (0.76-1.46)
--- NOTE | 2025-02-28 17:12 | W.PM.HP.N ---
Date of service: 02/28/25 Time of Service: 17:12 Assessment and Plan Assessment and plan (1) Altered mental status: Status: Acute Assessment and plan: referred to observation working diagnosis TIA vs migraine vs TGA teleneuro consultation with stroke r/o recommendations. asa load given add lipids and A1C monitor telemetry discussed with DR Boudreaux (2) Hypothyroid: Status: Chronic Assessment and plan: TSH 7.79 with free T4 0.97 Continue levothyroxine History of Present Illness Narrative: Presents to the emergency department for evaluation of altered mental status. Apparently patient has been under a lot of stress preparing a presentation which was scheduled to be administered today. She suddenly developed a severe headache and then became repetitive. She was brought to the emergency department where she continued to be repetitive. She was awake alert oriented to person but does not recall coming to the emergency department. She did undergo a teleneuro consultation. Working diagnosis stroke versus TIA versus migraine. Her CTA of the head and neck showed no large vessel occlusion the rest of her workup was unremarkable with no electrolyte abnormalities or other findings to explain her symptoms. Urinalysis was still pending at time of admission. Hospitalist services contacted obs her for further workup and evaluation. She was given aspirin load in the emergency department Review of Systems All systems reviewed & are unremarkable except as noted in HPI and below PFSH All Active Problems (Updated 02/28/25 @ 17:16 by Dennise Clement NP) Altered mental status (Acute) Neuropathy (Acute) Squamous cell carcinoma, leg (Acute) Skin lesion (Acute) Congestion of upper respiratory tract (Acute) Bruising tendency (Acute) Arthritis of left glenohumeral joint (Acute) Chest congestion (Acute) Fever (Acute) Calcific tendinitis of left shoulder (Acute) depo medrol 11/15/22 Colorectal polyp detected on colonoscopy (Acute ~08/31/22) mucosal prolapse polyp Renal insufficiency (Chronic) Hypothyroid (Chronic) Encounter for screening colonoscopy (Acute) Arthritis of right shoulder region (Acute) Tendonitis of long head of biceps brachii of right shoulder (Acute) Bursitis of right shoulder (Acute) Rotator cuff tear, right (Acute) Weight loss (Acute) Aphthous ulcer (Acute) Mouth sores (Acute) Wart (Acute) Hip pain (Acute) Vitamin D deficiency (Chronic 09/17/15) 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) MRI 10/12/17 Vaginal atrophy (Chronic 01/16/17) 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) Restless legs syndrome (Chronic 05/23/12) Knee pain (Chronic 05/23/12) Abnormal thyroid function test (Chronic 05/23/12) Migraines (Chronic) Medical History (Updated 02/28/25 @ 17:16 by Dennise Clement NP) Left calf atrophy Migraine Fibrocystic disease of breast Abnormal Pap history Surgical History (Updated 09/07/22 @ 15:26 by Usha Xavier RN) History of colonoscopy (~08/31/22) Shoulder surgery right; distal clavicle resection Colectomy SMALL BOWEL RESECTION -10/03/14 Cervical Procedure Colposcopy/ Biopsies for AMMON 1 1996 Biopsy of breast L breast 1999 [facility] [place] fibrocystic disease with adenosis and cysts Family History Mother Diabetes TYPE II Heart disease Hyperlipidemia Father , age 89 Diabetes TYPE II Heart disease Lung cancer Nonsmoker Sister , age 55 Ovarian cancer Brother Hyperlipidemia Maternal Grandfather No problems noted. Paternal Grandfather No problems noted. Maternal Grandmother Heart disease Paternal Grandmother Diabetes Son Bladder cancer Daughter No problems noted. Daughter Hyperthyroidism Social History (Updated 07/07/24 @ 15:25 by Ni Garner) Smoking/Tobacco Use Status: Never Second Hand Exposure: No Smoking risk assessment performed?: Yes Alcohol Intake: current Alcohol Intake frequency: a few times a week Alcohol type: beer, wine and hard liquor Drug use: Never Substance use type: does not use Caregiver/Support person: No Household members: spouse Housing: house Communication Needs: None Do you need help understanding health information?: Rarely Pets and animals: No Sexually active: No Do you think of yourself as: straight/heterosexual Current gender identity: female What is your relationship status?: How often do you talk on the phone with friends or family?: three or more times per week How often do you get together with friends or relatives?: three or more times per week How often do you attend jehovah's witness or confucianism services?: 4 or more times per year Do you belong to any clubs or organized social groups?: yes Panel score (0-1 are the most socially isolated patients): 4 What type of physical activity do you participate in: bicycling and yoga Duration: 15-30 minutes/day Frequency: 5-6 times per week [place]/Religious: Yazidi Special [place] needs: Yes (see Advanced directive) Seatbelt use: always Drive intox or ride w/intox 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 Do you feel safe at home: Yes Do you feel safe in your relationship?: Yes Meds Allergies and Home Medications Allergies Allergy/AdvReac Type Severity Reaction Status Date / Time No Known Allergies Allergy Verified 02/28/25 16:00 Home Medications ?Medication ?Instructions ?Recorded ?Confirmed ?Type Vitamin C Cream 1 applic topical DAILY 12/23/15 02/28/25 History tretinoin 0.05 % topical cream 1 applic topical DAILY 12/23/15 02/28/25 History gdhkfikm-yee-qjyjg acid 0.4 1 tab PO DAILY 08/18/20 02/28/25 History mg-lycopene 300 mcg-lutein 250 mcg tablet (Centrum Silver) cholecalciferol (vitamin D3) 50 50 mcg PO DAILY #90 tabs 11/10/20 02/28/25 Rx mcg (2,000 unit) tablet vitamin K2 100 mcg capsule 100 mcg PO DAILY 04/11/21 02/28/25 History cyanocobalamin (vitamin B-12) 2,000 mcg PO DAILY 08/16/22 02/28/25 History 1,000 mcg capsule Creon 6,000-19,000-30,000 unit 1 - 2 cap PO TID #180 caps 03/17/24 02/28/25 Rx capsule,delayed release (hfnbes-jqzsfudg-dxaevrh) levothyroxine 50 mcg tablet 50 mcg PO DAILY #90 tabs 05/26/24 02/28/25 Rx Magnesium 210 mg PO DAILY 07/07/24 02/28/25 History ergocalciferol (vitamin D2) 1,250 50,000 unit PO .twice weekly #24 07/17/24 02/28/25 Rx mcg (50,000 unit) capsule (Vitamin tab-caps D2) estradiol 10 mcg vaginal tablet 10 mcg vaginal twice weekly #24 11/28/24 02/28/25 Rx (Vagifem) tab-caps aspirin 81 mg tablet,delayed 81 mg PO DAILY #30 tabs 03/01/25 Rx release Exam Const General: cooperative, healthy appearing (younger than stated age), comfortable and no acute distress Nutritional Appearance: average body habitus Orientation: alert, awake and oriented x3 HENMT Head: normal to inspection, normocephalic and atraumatic Face and sinus: normal facial exam Mouth: oral mucosae normal Eyes General: appearance normal, both eyes and all related structures Neck Neck: normal visual inspection and full ROM Chest Chest: normal inspection of the chest Resp Effort & Inspection: normal respiratory effort Auscultation: clear to auscultation bilaterally Cardio Rate: regular rate Rhythm: regular rhythm GI Inspection: normal to inspection Palpation: soft Auscultation: normal bowel sounds Skin General skin exam: no rashes or lesions noted Neuro General: patient alert, patient awake, patient oriented x3, tone normal, moves all extremities and CN's II-XI intact bilaterally Cognition: normal cognition Speech: speech normal Gait: normal gait Motor: muscle tone normal throughout and strength 5/5 throughout Coordination: fqmans-ql-aowm test normal Extrem General: normal to inspection, full ROM and no pedal edema Psych Appearance: grossly normal and well kempt Speech and Movement: speech and movement normal Mood: congruent mood Affect: normal affect Attitude: cooperative Thought Process: normal Thought Content: normal Insight: insight good Judgment: judgment good Results Labs 03/01/25 06:00 03/01/25 06:00 Labs: Laboratory Results - last 24 hr 02/28/25 15:37 WBC 8.26 RBC 4.63 Hgb 14.0 Hct 43.5 MCV 94 MCH 30.2 MCHC 32.2 RDW 13.1 Plt Count 223 MPV 10.8 Immature Gran % 0.4 Neutrophils % 72.1 Lymphocytes % 20.5 Monocytes % 6.3 Eosinophils % 0.2 Basophils % 0.5 Nucleated RBC % 0.0 Absolute Neutrophils 5.96 Absolute Lymphocytes 1.69 Absolute Monocytes 0.52 Absolute Eosinophils 0.02 Absolute Basophils 0.04 Sodium 138 Potassium 4.1 Chloride 102 Carbon Dioxide 28.0 Anion Gap 8.0 BUN 15 Creatinine 1.0 Est GFR (CKD-EPI 2020) 59.12 Glucose 157 H Calcium 9.6 Magnesium 1.9 Total Bilirubin 0.6 AST 20 ALT 32 Alkaline Phosphatase 123 H Troponin I 13 Total Protein 7.5 Albumin 3.9 TSH 7.79 H Free T4 0.97 Last Vital Signs Temp 36.9 C 02/28/25 15:23 Pulse 81 02/28/25 16:00 Resp 18 02/28/25 16:16 BP 166/98 H 02/28/25 16:00 Pulse Ox 99 02/28/25 16:00 Time Spent Time spent with Patient: 55-74 minutes Time was spent: preparing to see the patient(eg.review tests), obtaining and/or reviewing separately otained hiistory, ordering medications,tests, procedures, indepentently interpreting results and counseling the patient
[2025-02-28 17:27] LABS: Lab Add On Test DONE
[2025-02-28] MEDS: Aspirin 325 MG TAB PO (17:42)
--- NOTE | 2025-02-28 17:48 | W.PC.ACHO ---
Registration Status: Primary Language: Preferred Language: ED Information & Data Chief Complaint CVA/TIA 02/28/25 15:30 Chief Complaint CVA/TIA 02/28/25 15:23 Triage Note during work meeting she 02/28/25 15:23 started c/o a migraine, became spacy, recent memory impairment, asking the same questions multiple times, blood sugar 178 prior to arrival, last known normal 1400 Medical / Surgical History (Last Updated 01/10/23 @ 09:37 by Renzo Mejia MD) Left calf atrophy Migraine Fibrocystic disease of breast Abnormal Pap history (Last Updated 09/07/22 @ 15:26 by Usha Xavier RN) History of colonoscopy (~08/31/22) Shoulder surgery Colectomy Cervical Procedure Biopsy of breast Most Recent Vital Signs Temperature 36.9 C 02/28/25 15:23 Temperature Source Tympanic 02/28/25 15:23 Pulse 69 02/28/25 17:31 Pulse 67 02/28/25 17:31 Respiratory Rate 12 02/28/25 17:31 Respiratory Effort Normal, Non-Labored 02/28/25 16:16 Respiratory Depth Normal 02/28/25 16:16 Respiratory Pattern Normal 02/28/25 16:16 Blood Pressure 146/91 H 02/28/25 17:31 Blood Pressure Mean 101 02/28/25 17:31 Pulse Oximetry 97 02/28/25 17:31 Oxygen Delivery Method Room Air 02/28/25 15:23 Oxygen Flow Rate 0 02/28/25 15:23 Allergies No Known Allergies Allergy (Verified 02/28/25 16:00) Precautions Isolation Standard precaution 02/28/25 15:30 Active Medications Generic Name Dose Route Start Last Admin Trade Name Freq PRN Reason Stop Dose Admin Iohexol 100 ml 02/28/25 16:15 02/28/25 16:03 Omnipaque 350 Mg/Ml 100 Ml Btl IJ 03/30/25 23:59 70 ml DIRECTED RONN Administration Sodium Chloride 50 ml 02/28/25 16:15 02/28/25 16:03 Normal Saline - Diluent 50 Ml Vial IJ 50 ml .FOR DI USE RONN Administration Diagnostics 02/28/25 02/28/25 02/28/25 Range/Units 18:41 17:26 15:37 WBC 8.26 (4.4-10.8) 10^3/uL RBC 4.63 (3.93-5.22) 10^6/uL Hgb 14.0 (11.2-15.7) g/dL Hct 43.5 (36.0-46.0) % MCV 94 (80-95) fL MCH 30.2 (27.0-33.0) pg MCHC 32.2 (32.0-36.0) % RDW 13.1 (11.7-14.6) % Plt Count 223 (130-400) 10^3/uL MPV 10.8 (8.0-11.0) fL Immature Gran % 0.4 % Neutrophils % 72.1 % Lymphocytes % 20.5 % Monocytes % 6.3 % Eosinophils % 0.2 % Basophils % 0.5 % Nucleated RBC % 0.0 (0.0-0.3) % Absolute Neutrophils 5.96 (1.2-6.7) 10^3/uL Absolute Lymphocytes 1.69 (1.2-3.4) 10^3/uL Absolute Monocytes 0.52 (0.1-0.8) 10^3/uL Absolute Eosinophils 0.02 (0.0-0.7) 10^3/uL Absolute Basophils 0.04 (0.0-0.2) 10^3/uL Sodium 138 (136-145) mmol/L Potassium 4.1 (3.5-5.1) mmol/L Chloride 102 (98-107) mmol/L Carbon Dioxide 28.0 (21.0-32.0) mmol/L Anion Gap 8.0 (3-11) mmol/L BUN 15 (7-18) mg/dL Creatinine 1.0 (0.55-1.02) mg/dL Est GFR (CKD-EPI 2020) 59.12 (mL/min/1.73m2) Glucose 157 H (74-106) mg/dL Hemoglobin A1c Pending Calcium 9.6 (8.5-10.1) mg/dL Magnesium 1.9 (1.8-2.4) mg/dL Total Bilirubin 0.6 (0.2-1.0) mg/dL AST 20 (15-37) U/L ALT 32 (14-59) U/L Alkaline Phosphatase 123 H (46-116) U/L Troponin I Pending Pending 13 (<or=51) ng/L Total Protein 7.5 (6.4-8.2) g/dL Albumin 3.9 (3.4-5.0) g/dL Triglycerides Pending Total Cholesterol Pending LDL Cholesterol, Calc Pending HDL Cholesterol Pending Vitamin B12 Pending TSH 7.79 H (0.36-3.74) uIU/mL Free T4 0.97 (0.76-1.46) ng/dL B. divergens/MO-1 PCR Pending Babesia duncani (PCR) Pending Babesia microti DNA PCR Pending Lyme Disease Antibody Pending E.chaffeensis DNA (PCR) Pending E.ewingii/canis DNA PCR Pending E.muris eauclairensis (PCR) Pending A. phagocytophilum (PCR) Pending Blood B. miyamotoi (PCR) Pending Add-On Test Request DONE Intake and Output - 24 Hour Total 02/28/25 15:15 thru 02/28/25 15:23 Weight 61.235 kg Falls Risk Assessment History of Falls No History 02/28/25 15:32 Fall Total Score 0 02/28/25 15:32 Level of Risk Standard/Low Risk 02/28/25 15:32 Problems (Last Updated 01/10/23 @ 09:37 by Renzo Mejia MD) Altered mental status (Acute) Hypothyroid (Chronic) v v v v v v v v v Sending and/or Receiving Nurses: Please use comment section below to note any information pertinent to the patient hand-off not included above. Information / Comments: Pt arrived to ED via ambulance after c/o severe headache and having some maked confusion during a meeting at work. Pt stated she didn't have any recollection of this incident and cannot remember how she got here, the ambulance ride or even the incident at the meeting. ED nurse reports pt still having trouble with short term memory and continues to ask what happened and how she got here. 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 CT scan performed isaiah when pt arrived to ED and it was WNL. Pt needs an MRI. Will have this done on Sunday per ED. Pt is normallt independet with ambulation, still drives and works, and is usually a/o x 4. Pt has a #18 to the L AC. Vital signs are stable at last reading done at 1730. Pt being admitted to floor for observation of symptoms. Will continue with plan of care Report received from:
[2025-02-28 17:59] LABS: Calculated LDL 85 mg/dL (<100); Cholesterol 170 mg/dL (<200); HDL Cholesterol 73 mg/dL (>or=50); Triglyceride 63 mg/dL (<150)
[2025-02-28 18:06] LABS: Bilirubin Negative (Negative); Blood Negative (Negative); Clarity Clear (Clear); Glucose Negative (Negative); Ketones Negative (Negative); Leukocyte Esterase Moderate (Negative); Nitrite Negative (Negative); Specific Gravity <= 1.005 (1.005-1.025); Urobilinogen 0.2 mg/dL (Up to 0.2)
[2025-02-28 18:12] LABS: Troponin I 44 ng/L (<or=51)
[2025-02-28 18:22] LABS: *AMPHETAMINES SCREEN URINE Negative (Negative); *BARBITURATES SCREEN URINE Negative (Negative); *BENZODIAZEPINES SCREEN URINE Negative (Negative); Bacteria Rare HPF (Negative); C & S Indicated? Yes; Cannabinoids THC Negative (Negative); Casts Negative LPF (Negative); Cocaine Screen,Urine Negative (Negative); Crystals Negative HPF (Negative); Epithelial Cells Rare HPF (Negative); METHADONE URINE SCREEN Negative (Negative); Mucus Negative (Negative); OPIATES URINE SCREEN Negative (Negative); RBC Negative HPF (0-2)
[2025-02-28 18:23] LABS: Tricyclic Antidepressants Negative (Negative)
[2025-02-28 18:24] LABS: Vitamin B12 604 pg/mL (193-986)
--- NOTE | 2025-02-28 20:39 | ED.GENADUL_ITS ---
Discharge Plan Discharge Details Chief Complaint: CVA/TIA Admit Date/Time: 02/28/25 17:12 Admit Provider: Aidan Boudreaux Attending Provider: Aidan Boudreaux Primary Care Provider: Carol Ann Shah ED Provider: Lucy Prieto Discharge Data Discharge Date/Time-TO BE ENTERED AT DEPARTURE: 02/28/25 17:53 HPI General Date/Time Provider Initiated Documentation: 02/28/25 16:55 . HPI Narrative: 74-year-old female with migraines, fibrocystic breast disease, and hypothyroidism presents with acute confusion, short-term memory loss, and repetitive speech. Symptoms began 30 minutes prior during a board meeting, witnessed by her daughter. No history of similar symptoms. Denies chest pain, dyspnea, vision loss, strength or sensation changes, focal symptoms, or injuries. Related Data Home Medications ?Medication ?Instructions ?Recorded ?Confirmed Vitamin C Cream 1 applic topical DAILY 12/23/15 02/28/25 tretinoin 0.05 % topical cream 1 applic topical DAILY 12/23/15 02/28/25 jcbojgdz-snr-eaguy acid 0.4 1 tab PO DAILY 08/18/20 02/28/25 mg-lycopene 300 mcg-lutein 250 mcg tablet (Centrum Silver) cholecalciferol (vitamin D3) 50 50 mcg PO DAILY #90 tabs 11/10/20 02/28/25 mcg (2,000 unit) tablet vitamin K2 100 mcg capsule 100 mcg PO DAILY 04/11/21 02/28/25 cyanocobalamin (vitamin B-12) 2,000 mcg PO DAILY 08/16/22 02/28/25 1,000 mcg capsule Creon 6,000-19,000-30,000 unit 1 - 2 cap PO TID #180 caps 03/17/24 02/28/25 capsule,delayed release (yxwtkq-sqncdkok-yjtixzf) levothyroxine 50 mcg tablet 50 mcg PO DAILY #90 tabs 05/26/24 02/28/25 Magnesium 210 mg PO DAILY 07/07/24 02/28/25 ergocalciferol (vitamin D2) 1,250 50,000 unit PO .twice weekly #24 07/17/24 02/28/25 mcg (50,000 unit) capsule (Vitamin tab-caps D2) estradiol 10 mcg vaginal tablet 10 mcg vaginal twice weekly #24 11/28/24 02/28/25 (Vagifem) tab-caps Previous Rx's ?Medication ?Instructions ?Recorded cholecalciferol (vitamin D3) 50 50 mcg PO DAILY #90 tabs 11/10/20 mcg (2,000 unit) tablet Creon 6,000-19,000-30,000 unit 1 - 2 cap PO TID #180 caps 03/17/24 capsule,delayed release (sqdeha-ivmuqhay-akwcdio) levothyroxine 50 mcg tablet 50 mcg PO DAILY #90 tabs 05/26/24 ergocalciferol (vitamin D2) 1,250 50,000 unit PO .twice weekly #24 07/17/24 mcg (50,000 unit) capsule (Vitamin tab-caps D2) estradiol 10 mcg vaginal tablet 10 mcg vaginal twice weekly #24 11/28/24 (Vagifem) tab-caps Allergies Allergy/AdvReac Type Severity Reaction Status Date / Time No Known Allergies Allergy Verified 02/28/25 16:00 General Stated Complaint: CVA/TIA JESSICA: 2 Exam Narrative Exam Narrative: General Appearance: Alert and oriented. Vital signs: Within normal limits. HEENT: Pupils equal, round, reactive to light and accommodation. EOM and visual chi intact. Oropharynx patent, uvula midline. Respiratory: Lungs clear. Cardiovascular: Regular cardiac rate and rhythm. Extremities: Strength and sensation intact in all extremities. Neurological: Cranial nerves II-XII intact. Negative zoqexm-hvjq-bsiogw, heel- traore, and pronator drift tests. Coherent speech. Psychiatric: Coherent speech. Course Vital Signs Vital signs: Vital Signs Temperature 36.9 C 02/28/25 15:23 Pulse 74 02/28/25 15:23 Respiratory Rate 16 02/28/25 15:23 Blood Pressure 169/98 H 02/28/25 15:23 Pulse Oximetry 99 02/28/25 15:23 Temperature 36.5 C 02/28/25 17:57 Temperature Source Temporal Artery Scan 02/28/25 17:57 Pulse 67 02/28/25 17:57 Pulse Rhythm Regular 02/28/25 17:56 Pulse 67 02/28/25 17:31 Respiratory Rate 12 02/28/25 17:57 Respiratory Effort Normal 02/28/25 17:56 Respiratory Depth Normal 02/28/25 17:56 Respiratory Pattern Normal 02/28/25 17:56 Blood Pressure 166/83 H 02/28/25 17:57 Blood Pressure Mean 110 02/28/25 17:57 Pulse Oximetry 99 02/28/25 17:57 Oxygen Delivery Method Room Air 02/28/25 17:57 Oxygen Flow Rate 0 02/28/25 17:57 Pain Level 0 02/28/25 18:13 Lab/Test Results Lab/Test Results: Laboratory Tests Range/Units 02/28/25 15:37 WBC (4.4-10.8) 10^3/uL 8.26 RBC (3.93-5.22) 10^6/uL 4.63 Hgb (11.2-15.7) g/dL 14.0 Hct (36.0-46.0) % 43.5 MCV (80-95) fL 94 MCH (27.0-33.0) pg 30.2 MCHC (32.0-36.0) % 32.2 RDW (11.7-14.6) % 13.1 Plt Count (130-400) 10^3/uL 223 MPV (8.0-11.0) fL 10.8 Immature Gran % % 0.4 Neutrophils % % 72.1 Lymphocytes % % 20.5 Monocytes % % 6.3 Eosinophils % % 0.2 Basophils % % 0.5 Nucleated RBC % (0.0-0.3) % 0.0 Absolute Neutrophils (1.2-6.7) 10^3/uL 5.96 Absolute Lymphocytes (1.2-3.4) 10^3/uL 1.69 Absolute Monocytes (0.1-0.8) 10^3/uL 0.52 Absolute Eosinophils (0.0-0.7) 10^3/uL 0.02 Absolute Basophils (0.0-0.2) 10^3/uL 0.04 Sodium (136-145) mmol/L 138 Potassium (3.5-5.1) mmol/L 4.1 Chloride (98-107) mmol/L 102 Carbon Dioxide (21.0-32.0) mmol/L 28.0 Anion Gap (3-11) mmol/L 8.0 BUN (7-18) mg/dL 15 Creatinine (0.55-1.02) mg/dL 1.0 Est GFR (CKD-EPI 2020) (mL/min/1.73m2) 59.12 Glucose (74-106) mg/dL 157 H Hemoglobin A1c (<5.7) % 5.0 Calcium (8.5-10.1) mg/dL 9.6 Magnesium (1.8-2.4) mg/dL 1.9 Total Bilirubin (0.2-1.0) mg/dL 0.6 AST (15-37) U/L 20 ALT (14-59) U/L 32 Alkaline Phosphatase (46-116) U/L 123 H Troponin I (<or=51) ng/L 13 Total Protein (6.4-8.2) g/dL 7.5 Albumin (3.4-5.0) g/dL 3.9 Triglycerides (<150) mg/dL 63 Total Cholesterol (<200) mg/dL 170 LDL Cholesterol, Calc (<100) mg/dL 85 HDL Cholesterol (>or=50) mg/dL 73 H TSH (0.36-3.74) uIU/mL 7.79 H Free T4 (0.76-1.46) ng/dL 0.97 Add-On Test Request DONE Medical Decision Making Results: CTA head and neck: no acute abnormality, fibromuscular dysplasia noted. Initial Assessment: 74-year-old female with acute onset of confusion, loss of short-term memory, and repetitive speech during a board meeting presentation. No history of similar symptoms, chest pain, shortness of breath, vision loss, strength or sensation change, focal symptoms, or injuries. Event witnessed by patient's daughter. On arrival, patient alert and oriented, pupils equal, round, reactive to light and accommodation, extraocular muscles intact, visual chi intact, oropharynx patent, uvula midline, cranial nerves II-XII intact, cardiac rate and rhythm regular, lungs clear to auscultation, negative vuyrde-basx-temdaf, negative heel traore, negative pronator drift, strength and sensation intact in all extremities, speech coherent. ED Course: - Telestroke called. - CTA of head and neck: No acute abnormality, fibromuscular dysplasia noted. Read by me. - NIH stroke score: Zero. - Neurology consulted: Dr. Tejeda. - Recommendations: Admit patient, check lipid panel, start atorvastatin, initiate 325 mg aspirin followed by 81 mg daily, echocardiogram, MRI of brain. - Swallow study: Able to tolerate oral intake, aspirin therapy started. - Case discussed with Dennise Clement NP, accepted to hospitalist service. Final Assessment: Patient with suspected transient global amnesia/TIA, NIH stroke score zero, no tPA needed. Stroke team consulted, neurology recommended admission and further diagnostic tests and treatments. Patient agreeable to plan, aspirin therapy initiated. Clinical Impression: - Suspected transient global amnesia/TIA - Fibromuscular dysplasia Disposition: - Admission: Accepted to hospitalist service. MDM Components Evaluation: - Number of Differential Diagnoses or Management Options: Suspected transient global amnesia/TIA, fibromuscular dysplasia. - Amount and Complexity of Data Reviewed: CTA of head and neck, NIH stroke score, neurology consultation, swallow study. - Risk of Complication and Morbidity or Mortality: Moderate risk due to acute onset of neurological symptoms and potential TIA. Quality:SDOH Health Related Social Needs: No Data to Display PFSH All Active Problems (Updated 02/28/25 @ 17:16 by Dennise Clement NP) Altered mental status (Acute) Neuropathy (Acute) Squamous cell carcinoma, leg (Acute) Skin lesion (Acute) Congestion of upper respiratory tract (Acute) Bruising tendency (Acute) Arthritis of left glenohumeral joint (Acute) Chest congestion (Acute) Fever (Acute) Calcific tendinitis of left shoulder (Acute) depo medrol 11/15/22 Colorectal polyp detected on colonoscopy (Acute ~08/31/22) mucosal prolapse polyp Renal insufficiency (Chronic) Hypothyroid (Chronic) Encounter for screening colonoscopy (Acute) Arthritis of right shoulder region (Acute) Tendonitis of long head of biceps brachii of right shoulder (Acute) Bursitis of right shoulder (Acute) Rotator cuff tear, right (Acute) Weight loss (Acute) Aphthous ulcer (Acute) Mouth sores (Acute) Wart (Acute) Hip pain (Acute) Vitamin D deficiency (Chronic 09/17/15) 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) MRI 10/12/17 Vaginal atrophy (Chronic 01/16/17) 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) Restless legs syndrome (Chronic 05/23/12) Knee pain (Chronic 05/23/12) Abnormal thyroid function test (Chronic 05/23/12) Migraines (Chronic) Medical History (Updated 02/28/25 @ 17:16 by Dennise Clement NP) Left calf atrophy Migraine Fibrocystic disease of breast Abnormal Pap history Surgical History (Updated 09/07/22 @ 15:26 by Usha Xavier RN) History of colonoscopy (~08/31/22) Shoulder surgery right; distal clavicle resection Colectomy SMALL BOWEL RESECTION -10/03/14 Cervical Procedure Colposcopy/ Biopsies for AMMON 1 1996 Biopsy of breast L breast 1999 [facility] [place], [place] fibrocystic disease with adenosis and cysts Family History Mother Diabetes TYPE II Heart disease Hyperlipidemia Father , age 89 Diabetes TYPE II Heart disease Lung cancer Nonsmoker Sister , age 55 Ovarian cancer Brother Hyperlipidemia Maternal Grandfather No problems noted. Paternal Grandfather No problems noted. Maternal Grandmother Heart disease Paternal Grandmother Diabetes Son Bladder cancer Daughter No problems noted. Daughter Hyperthyroidism Social History (Updated 07/07/24 @ 15:25 by Ni Garner) Smoking/Tobacco Use Status: Never Second Hand Exposure: No Smoking risk assessment performed?: Yes Alcohol Intake: current Alcohol Intake frequency: a few times a week Alcohol type: beer, wine and hard liquor Drug use: Never Substance use type: does not use Caregiver/Support person: No Household members: spouse Housing: house Communication Needs: None Do you need help understanding health information?: Rarely Pets and animals: No Sexually active: No Do you think of yourself as: straight/heterosexual Current gender identity: female What is your relationship status?: How often do you talk on the phone with friends or family?: three or more times per week How often do you get together with friends or relatives?: three or more times per week How often do you attend jain or spiritism services?: 4 or more times per year Do you belong to any clubs or organized social groups?: yes Panel score (0-1 are the most socially isolated patients): 4 What type of physical activity do you participate in: bicycling and yoga Duration: 15-30 minutes/day Frequency: 5-6 times per week [place]/Yazidi: Spiritism Special enid needs: Yes (see Advanced directive) Seatbelt use: always Drive intox or ride w/intox milk tanker driver: No Do you feel safe at home: Yes Do you feel safe in your relationship?: Yes
[2025-03-01 01:05] VITALS: BP 120/64; PULSE 71; RESP 12; TEMP 36.8; O2SAT 95
[2025-03-01 05:27] VITALS: BP 107/73; PULSE 71; RESP 14; TEMP 36.6; O2SAT 97
[2025-03-01 06:42] LABS: Abs Immature Grans 0.03 10^3/uL (0.0-0.06); Absolute Basophil Count 0.04 10^3/uL (0.0-0.2); Absolute Eosinophil Count 0.12 10^3/uL (0.0-0.7); Absolute Lymphocyte Count 1.97 10^3/uL (1.2-3.4); Absolute Monocyte Count 0.68 10^3/uL (0.1-0.8); Absolute Neutrophil Count 6.51 10^3/uL (1.2-6.7); Basophils % 0.4 %; Eosinophils % 1.3 %; HCT 42.2 % (36.0-46.0); Immature Grans % 0.3 %; Lymphocytes % 21.1 %; MCH 30.4 pg (27.0-33.0); MCHC 33.2 % (32.0-36.0); MCV 92 fL (80-95); MPV 11.3 fL (8.0-11.0); Monocytes % 7.3 %; Neutrophils % 69.6 %; Platelet Count 215 10^3/uL (130-400); RBC 4.61 10^6/uL (3.93-5.22); RDW 13.2 % (11.7-14.6); RDW-SD 44.3 fL; WBC 9.35 10^3/uL (4.4-10.8)
[2025-03-01 06:53] LABS: Anion Gap 6.3 mmol/L (3-11); BUN 12 mg/dL (7-18); CO2 27.7 mmol/L (21.0-32.0); Calcium 9.3 mg/dL (8.5-10.1); Chloride 106 mmol/L (98-107); Estimated GFR 59.12 (mL/min/1.73m2); Glucose 88 mg/dL (74-106); Potassium 3.9 mmol/L (3.5-5.1); Sodium 140 mmol/L (136-145)
[2025-03-01 07:32] VITALS: BP 112/61; PULSE 71; RESP 18; TEMP 36.8; O2SAT 98
--- NOTE | 2025-03-01 08:18 | PDOC.CMIN ---
Date of service: 03/01/25 Time of Service: 08:18 Care Management Initial Assmt Initial Assessment Reason for Hospitalization: AMS Functional Status/Living Situation Patient Presentation: Susannah was awake and sitting up in bed when CM met with her. She is pleasant and easy to engage in conversation. She shares with CM that she is on the [employer] for the [employer] and gave an entire presentation yesterday that she has absolutely no recollection of. She feels better and would prefer to discharge home today and come back for her MRI in the morning. CM will follow. Town of Residence: [place] Resides with: Spouse (Santos) Significant Other/Family: Out of area (Daughter in [facility], Son in [place], Daughter in [place]) Natural Supports: Supportive family and friends Employment Status: Retired (Teacher) Instrumental Activities of Daily Living (ADLs): Independent Medications Medication Management: No Issues/Barriers identified Physical Functioning/Mobility Assistive Device: None Advance Directives Advance Directives: Do you have an Advance Directive: Y 09/16/15 08:[address] [facility]: Y 11/25/14 14:38 Date Asked 12/27/23 12/27/23 08:32 AD Date Reviewed 02/28/25 02/28/25 15:[address] [facility] No 02/28/25 17:25 COLST Date Scanned Code Status Resuscitation Status Full Code Insurance Coverage/Financial Issues Insurance: BC/BS [facility] - [id number] Care Team Visit Care Team Role Provider Type Dennise Clement NP NURSE PRACTITIONER Carol Ann Shah MD, [place] Primary Care Provider [facility] CHERIE Manley Emergency Provider [employer]ET[employer] COORDINATOR Aidan Boudreaux MD Admit Provider [facility] STAFF PHYSICIAN Attending Provider Discharge Potential Discharge Needs: Consult Consult Services Needed: Other (Neurology), Imaging/labs (Outpt MRI), PCP F/U Appt and Other Anticipated Barriers to Discharge: None Identified Patient/Family Education Needs: Review discharge instructions, discuss Ask Me Three Transportation: Private vehicle Plan: Anticipate, Susannah will discharge home via private vehicle when medically ready for discharge. Follow up appointment with her PCP and discharge plan of care will be needed prior to discharge. CM will continue to follow. Social Determinants of Health Screening Social Determinants of health last assessed in clinic: 03/01/25 Will the Patient Participate in the Screening?: Yes Do you worry about having a steady place to live?: no Problems where you live: no known problems In the past 12 months, have you had to go without electric, gas, oil or water in your home?: no 1. Within the past 12 months, we worried whether our food would run out before we got money to buy more.: Never true 2. Within the past 12 months, the food we bought just didn't last and we didn't have money to get more.: Never true Has lack of transportation kept you from medical appointments or from doing things needed for daily living?: no Has anyone in your life made you feel unsafe or unsupported?: no How hard is it for you to pay for the very basics like food, housing, medical care, and heating? Would you say it is:: Not hard at all Do you want help finding or keeping work or a job?: I do not need or want help If for any reason you need help with day-to-day activities such as bathing, preparing meals, shopping, managing finances, etc., do you get the help you need?: I don?t need any help How often do you feel lonely or isolated from those around you?: Never Do you speak a language other than Telugu at home?: No Does the patient want assistance with any of the above?: No PFSH All Active Problems (Updated 02/28/25 @ 17:16 by Dennise Clement NP) Altered mental status (Acute) Neuropathy (Acute) Squamous cell carcinoma, leg (Acute) Skin lesion (Acute) Congestion of upper respiratory tract (Acute) Bruising tendency (Acute) Arthritis of left glenohumeral joint (Acute) Chest congestion (Acute) Fever (Acute) Calcific tendinitis of left shoulder (Acute) depo medrol 11/15/22 Colorectal polyp detected on colonoscopy (Acute ~08/31/22) mucosal prolapse polyp Renal insufficiency (Chronic) Hypothyroid (Chronic) Encounter for screening colonoscopy (Acute) Arthritis of right shoulder region (Acute) Tendonitis of long head of biceps brachii of right shoulder (Acute) Bursitis of right shoulder (Acute) Rotator cuff tear, right (Acute) Weight loss (Acute) Aphthous ulcer (Acute) Mouth sores (Acute) Wart (Acute) Hip pain (Acute) Vitamin D deficiency (Chronic 09/17/15) 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) MRI 10/12/17 Vaginal atrophy (Chronic 01/16/17) 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) Restless legs syndrome (Chronic 05/23/12) Knee pain (Chronic 05/23/12) Abnormal thyroid function test (Chronic 05/23/12) Migraines (Chronic) Medical History (Updated 02/28/25 @ 17:16 by Dennise Clement NP) Left calf atrophy Migraine Fibrocystic disease of breast Abnormal Pap history Surgical History (Updated 09/07/22 @ 15:26 by Usha Xavier RN) History of colonoscopy (~08/31/22) Shoulder surgery right; distal clavicle resection Colectomy SMALL BOWEL RESECTION -10/03/14 Cervical Procedure Colposcopy/ Biopsies for AMMON 1 1996 Biopsy of breast L breast 1999 [facility] [place] fibrocystic disease with adenosis and cysts Family History Mother Diabetes TYPE II Heart disease Hyperlipidemia Father , age 89 Diabetes TYPE II Heart disease Lung cancer Nonsmoker Sister , age 55 Ovarian cancer Brother Hyperlipidemia Maternal Grandfather No problems noted. Paternal Grandfather No problems noted. Maternal Grandmother Heart disease Paternal Grandmother Diabetes Son Bladder cancer Daughter No problems noted. Daughter Hyperthyroidism Social History (Updated 07/07/24 @ 15:25 by Ni Garner) Smoking/Tobacco Use Status: Never Second Hand Exposure: No Smoking risk assessment performed?: Yes Alcohol Intake: current Alcohol Intake frequency: a few times a week Alcohol type: beer, wine and hard liquor Drug use: Never Substance use type: does not use Caregiver/Support person: No Household members: spouse Housing: house Communication Needs: None Do you need help understanding health information?: Rarely Pets and animals: No Sexually active: No Do you think of yourself as: straight/heterosexual Current gender identity: female What is your relationship status?: How often do you talk on the phone with friends or family?: three or more times per week How often do you get together with friends or relatives?: three or more times per week How often do you attend scientology or alevism services?: 4 or more times per year Do you belong to any clubs or organized social groups?: yes Panel score (0-1 are the most socially isolated patients): 4 What type of physical activity do you participate in: bicycling and yoga Duration: 15-30 minutes/day Frequency: 5-6 times per week [place]/Orthodox: Restoration Special enid needs: Yes (see Advanced directive) Seatbelt use: always Drive intox or ride w/intox log driver: No Do you feel safe at home: Yes Do you feel safe in your relationship?: Yes
[2025-03-01] MEDS: Normal Saline Flush 10 ML SYR IVP (08:33)
[2025-03-01] MEDS: Cholecalciferol (Vitamin D3) 1,000 UNIT TAB 2000 UNITS PO (08:33)
[2025-03-01] MEDS: Ergocalciferol 50000 UNITS CAP PO (09:58)
[2025-03-01] MEDS: Levothyroxine 50 MCG TAB PO (09:58)
[2025-03-01 11:23] VITALS: BP 135/76; PULSE 61; RESP 18; TEMP 36.7; O2SAT 98
--- NOTE | 2025-03-01 11:25 | PDOC.CMDIS ---
Date of service: 03/01/25 Time of Service: 11:25 LACE Index Scoring Tool Questions: Length of Stay (in days): 1 Was the patient admitted via the E.D.?: Yes E.D. Visits: 1 Answers: Total Score: 5 Risk of Readmission: Low Risk Care Management Discharge Plan Reason for Hospitalization: AMS Discharge Plan: Discharge home via private vehicle with family. Follow up with PCP and discharge plan of care and outpatient MRI as directed. No new services are ordered prior to discharge. Patient/Family Education Needs: Review discharge instructions, limitations and plan to follow up as an outpatient. Discuss ask me three. [facility] Health Related Social Needs: No Data to Display
--- NOTE | 2025-03-01 11:55 | DSE_ITS ---
Date of service: 03/01/25 Time of Service: 11:55 DS: Diagnosis Discharge Diagnosis (1) Altered mental status: Status: Acute (2) Hypothyroid: Status: Chronic Discharge Plan Disposition Patient Disposition: Home Condition: Improving Discharge Details Reason For Visit: altered mental status Admit Date/Time: 02/28/25 17:12 Admit Provider: Aidan Boudreaux Attending Provider: Aidan Boudreaux Primary Care Provider: Carol Ann Shah [place] [facility] Hospital Course: This is a 74 year old female who presented to the emergency department for evaluation of altered mental status. 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 She was brought to the emergency department where she continued to be repetitive. She was awake alert oriented to person but does not recall coming to the emergency department. She did undergo a teleneuro consultation. Working diagnosis stroke versus TIA versus migraine. Her symptoms also concerning for transient global amnesia. Her CTA of the head and neck showed no large vessel occlusion the rest of her workup was unremarkable with no electrolyte abnormalities or other findings to explain her symptoms. Urinalysis with culture still pending but no symptoms of urinary tract infection. Hospitalist services contacted and she was referred to observation for further monitoring. She was given aspirin load in the emergency department and will continue a baby aspirin daily. she remained in NSR on telemetry with no dysrhythmias, she was discharged on a cardiac event recorder. she remained hemodynamically stable with no further repetitiveness but does not recall appropriately 4-6 hour block from yesterday. she is at her baseline and as MRI or echo not available, outpatient will be arranged. She wishes to discuss statin with PCP. she is being discharged to home with no services. outpatient echo and MRI ordered. she was advised to follow up with pcp or return here sooner for new or worsening symptoms; discussed with DR Boudreaux Home Meds and New Rx's Prescriptions: New aspirin 81 mg tablet,delayed release (DR/EC) 81 mg PO DAILY Qty: 30 0RF Continued Magnesium 210 mg PO DAILY Rx Instructions: Magnesium glycinate 210mg (am) Magnesium citrate, glycinate, malate 225mg (pm) vitamin K2 100 mcg capsule 100 mcg PO DAILY Patient Comments: (MK7) tretinoin 20 GM cream 1 applic Topical DAILY Vitamin C Cream 1 applic Topical DAILY Centrum Silver 0.4-300-250 mg-mcg-mcg tablet 1 tab PO DAILY cholecalciferol (vitamin D3) 50 mcg (2,000 unit) tablet 50 mcg PO DAILY Qty: 90 4RF cyanocobalamin (vitamin B-12) 1,000 mcg capsule 2,000 mcg PO DAILY Creon 6,000-19,000 -30,000 unit capsule,delayed release(DR/EC) 1 - 2 cap PO TID Qty: 180 6RF levothyroxine 50 mcg tablet 50 mcg PO DAILY Qty: 90 6RF ergocalciferol (vitamin D2) [Vitamin D2] 1,250 mcg (50,000 unit) capsule 50,000 unit PO .twice weekly Qty: 24 12RF estradiol [Vagifem] 10 mcg tablet 10 mcg VG twice weekly Qty: 24 12RF Discharge Instructions Instructions: Amnesia, Migraine in adults Additional Instructions: wear cardiac recorder as directed take baby aspirin daily as directed\ see primary care provider return sooner for new or worsening symptoms Stand Alone Forms: Nursing Discharge Form Referrals: Carol Ann Shah MD, [place] [Primary Care Provider] - (Please call your pcp to schedule an appoitment within 7-10 days.) Activity:: Activity as Tolerated Equipment/Supplies:: No Equipment Needed Diet:: As Tolerated Discharge Orders Discharge Orders: Discharge Order (Routine); Ordered 03/01/25 Ordered By: Dennise Clement Other Ambulatory Orders: Cardiac Event Recorder (Routine) Timeframe: 20250301 Facility: [facility] - Location: Respiratory Therapy Ordered By: Dennise Clement MR brain wo (Routine) Timeframe: 10 Day Facility: [facility] - Location: DIAGNOSTIC IMAGING Ordered By: Dennise Clement US echocardiogram (Routine) Timeframe: 10 Day Facility: [facility] - Location: DIAGNOSTIC IMAGING Ordered By: Dennise Clement Discharge Data Discharge Date/Time-TO BE ENTERED AT DEPARTURE: 03/01/25 13:16 DS: Summary Time Spent with Patient providing and/or coordinating discharge services: Greater than 30 minutes Status at Discharge Functional status at discharge: independent ambulation Overall status at discharge: patient is back to baseline Mental Status: mental status grossly normal Speech and Movement: speech and movement normal Mood: congruent mood Affect: normal affect Quality:SDOH Health Related Social Needs: No Data to Display Exam Const General: cooperative, healthy appearing (younger than stated age), comfortable and no acute distress Nutritional Appearance: average body habitus Orientation: alert, awake and oriented x3 HENMT Head: normal to inspection, normocephalic and atraumatic Face and sinus: normal facial exam Mouth: oral mucosae normal Eyes General: appearance normal, both eyes and all related structures Neck Neck: normal visual inspection and full ROM Chest Chest: normal inspection of the chest Resp Effort & Inspection: normal respiratory effort Auscultation: clear to auscultation bilaterally Cardio Rate: regular rate Rhythm: regular rhythm GI Inspection: normal to inspection Palpation: soft Auscultation: normal bowel sounds Skin General skin exam: no rashes or lesions noted Neuro General: patient alert, patient awake, patient oriented x3, tone normal, moves all extremities and CN's II-XI intact bilaterally Cognition: normal cognition Speech: speech normal Gait: normal gait Motor: muscle tone normal throughout and strength 5/5 throughout Coordination: [id number] test normal Extrem General: normal to inspection, full ROM and no pedal edema Psych Appearance: grossly normal and well kempt Mental Status: mental status grossly normal Speech and Movement: speech and movement normal Mood: congruent mood Affect: normal affect Attitude: cooperative Thought Process: normal Thought Content: normal Insight: insight good Judgment: judgment good DS: Data Vitals/I&O Vitals and I&O: Vital Signs Temperature 36.7 C 03/01/25 11:23 Temperature Source Temporal Artery Scan 03/01/25 11:23 Pulse 61 03/01/25 11:23 Pulse Rhythm Regular 02/28/25 17:56 Pulse 67 02/28/25 17:31 Respiratory Rate 18 03/01/25 11:23 Respiratory Effort Normal 02/28/25 17:56 Respiratory Depth Normal 02/28/25 17:56 Respiratory Pattern Normal 02/28/25 17:56 Blood Pressure 135/76 03/01/25 11:23 Blood Pressure Mean 95 03/01/25 11:23 Pulse Oximetry 98 03/01/25 11:23 Oxygen Delivery Method Room Air 03/01/25 11:23 Oxygen Flow Rate 0 03/01/25 11:23 Pain Level 0 03/01/25 05:27 Intake & Output 02/28/25 02/28/25 03/01/25 11:59 23:59 11:59 Intake Total 520 / 520 490 / 490 Output Total 350 / 350 Balance 170 / 170 490 / 490 Weight 61.235 kg Intake: IV 20 Oral 500 / 500 490 / 490 Output: Urine 350 / 350 Other: Urine Color Pale Yellow Urine Appearance Clear Urine Odor Normal Comment pT stated they voided Data Completed and Pending Labs on day of discharge: Labs from last 24 hours 03/01/25 06:00: WBC 9.35, RBC 4.61, Hgb 14.0, Hct 42.2, MCV 92, MCH 30.4, MCHC 33.2, RDW 13.2, Plt Count 215, MPV 11.3 H, Immature Gran % 0.3, Neutrophils % 69.6, Lymphocytes % 21.1, Monocytes % 7.3, Eosinophils % 1.3, Basophils % 0.4, Nucleated RBC % 0.0, Absolute Neutrophils 6.51, Absolute Lymphocytes 1.97, Absolute Monocytes 0.68, Absolute Eosinophils 0.12, Absolute Basophils 0.04, Sodium 140, Potassium 3.9, Chloride 106, Carbon Dioxide 27.7, Anion Gap 6.3, BUN 12, Creatinine 1.0, Est GFR (CKD-EPI 2020) 59.12, Glucose 88, Calcium 9.3 02/28/25 18:41: Troponin I Cancelled 02/28/25 17:50: Urine Color Yellow, Urine Clarity Clear, Urine pH 6.0, Ur Specific [place] <= 1.005, Urine Protein Negative, Urine Ketones Negative, Urine Blood Negative, Urine Nitrite Negative, Urine Bilirubin Negative, Urine Urobilinogen 0.2, Ur Leukocyte Esterase Moderate H, Urine RBC Negative, Urine WBC 10-20 H, Ur Epithelial Cells Rare, Urine Crystals Negative, Urine Bacteria Rare, Urine Casts Negative, Urine Mucus Negative, Ur Culture Indicated? Yes, Urine Glucose Negative, Urine Opiates Screen Negative, Urine Methadone Screen Negative, Ur Barbiturates Screen Negative, Ur Tricyclics Screen Negative, Ur Amphetamines Screen Negative, U Benzodiazepines Scrn Negative, Urine Cocaine Screen Negative, Ur THC Screen Negative 02/28/25 17:26: Troponin I 44, Vitamin B12 604 02/28/25 15:37: WBC 8.26, RBC 4.63, Hgb 14.0, Hct 43.5, MCV 94, MCH 30.2, MCHC 32.2, RDW 13.1, Plt Count 223, MPV 10.8, Immature Gran % 0.4, Neutrophils % 72.1, Lymphocytes % 20.5, Monocytes % 6.3, Eosinophils % 0.2, Basophils % 0.5, Nucleated RBC % 0.0, Absolute Neutrophils 5.96, Absolute Lymphocytes 1.69, Absolute Monocytes 0.52, Absolute Eosinophils 0.02, Absolute Basophils 0.04, Sodium 138, Potassium 4.1, Chloride 102, Carbon Dioxide 28.0, Anion Gap 8.0, BUN 15, Creatinine 1.0, Est GFR (CKD-EPI 2020) 59.12, Glucose 157 H, Hemoglobin A1c 5.0, Calcium 9.6, Magnesium 1.9, Total Bilirubin 0.6, AST 20, ALT 32, Alkaline Phosphatase 123 H, Troponin I 13, Total Protein 7.5, Albumin 3.9, Triglycerides 63, Total Cholesterol 170, LDL Cholesterol, Calc 85, HDL Cholesterol 73 H, TSH 7.79 H, Free T4 0.97, B. divergens/MO-1 PCR Pending, Babesia duncani (PCR) Pending, Babesia microti DNA PCR Pending, Lyme Disease Antibody Pending, E.chaffeensis DNA (PCR) Pending, E.ewingii/canis DNA PCR Pending, E.muris eauclairensis (PCR) Pending, A. phagocytophilum (PCR) Pending, Blood B. miyamotoi (PCR) Pending, Add-On Test Request DONE Preliminary micro results at discharge 02/28/25 17:50 Urine - Reflex from Ua Urine Culture - Preliminary Gram positive major, mixed PFSH All Active Problems (Updated 02/28/25 @ 17:16 by Dennise Clement NP) Altered mental status (Acute) Neuropathy (Acute) Squamous cell carcinoma, leg (Acute) Skin lesion (Acute) Congestion of upper respiratory tract (Acute) Bruising tendency (Acute) Arthritis of left glenohumeral joint (Acute) Chest congestion (Acute) Fever (Acute) Calcific tendinitis of left shoulder (Acute) depo medrol 11/15/22 Colorectal polyp detected on colonoscopy (Acute ~08/31/22) mucosal prolapse polyp Renal insufficiency (Chronic) Hypothyroid (Chronic) Encounter for screening colonoscopy (Acute) Arthritis of right shoulder region (Acute) Tendonitis of long head of biceps brachii of right shoulder (Acute) Bursitis of right shoulder (Acute) Rotator cuff tear, right (Acute) Weight loss (Acute) Aphthous ulcer (Acute) Mouth sores (Acute) Wart (Acute) Hip pain (Acute) Vitamin D deficiency (Chronic 09/17/15) 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) MRI 10/12/17 Vaginal atrophy (Chronic 01/16/17) 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) Restless legs syndrome (Chronic 05/23/12) Knee pain (Chronic 05/23/12) Abnormal thyroid function test (Chronic 05/23/12) Migraines (Chronic) Medical History (Updated 02/28/25 @ 17:16 by Dennise Clement NP) Left calf atrophy Migraine Fibrocystic disease of breast Abnormal Pap history Surgical History (Updated 09/07/22 @ 15:26 by Usha Xavier RN) History of colonoscopy (~08/31/22) Shoulder surgery right; distal clavicle resection Colectomy SMALL BOWEL RESECTION -10/03/14 Cervical Procedure Colposcopy/ Biopsies for AMMON 1 1996 Biopsy of breast L breast 1999 [facility] [place] fibrocystic disease with adenosis and cysts Family History Mother Diabetes TYPE II Heart disease Hyperlipidemia Father , age 89 Diabetes TYPE II Heart disease Lung cancer Nonsmoker Sister , age 55 Ovarian cancer Brother Hyperlipidemia Maternal Grandfather No problems noted. Paternal Grandfather No problems noted. Maternal Grandmother Heart disease Paternal Grandmother Diabetes Son Bladder cancer Daughter No problems noted. Daughter Hyperthyroidism Social History (Updated 07/07/24 @ 15:25 by Ni Garner) Smoking/Tobacco Use Status: Never Second Hand Exposure: No Smoking risk assessment performed?: Yes Alcohol Intake: current Alcohol Intake frequency: a few times a week Alcohol type: beer, wine and hard liquor Drug use: Never Substance use type: does not use Caregiver/Support person: No Household members: spouse Housing: house Communication Needs: None Do you need help understanding health information?: Rarely Pets and animals: No Sexually active: No Do you think of yourself as: straight/heterosexual Current gender identity: female What is your relationship status?: How often do you talk on the phone with friends or family?: three or more times per week How often do you get together with friends or relatives?: three or more times per week How often do you attend uatsdin or presybeterian services?: 4 or more times per year Do you belong to any clubs or organized social groups?: yes Panel score (0-1 are the most socially isolated patients): 4 What type of physical activity do you participate in: bicycling and yoga Duration: 15-30 minutes/day Frequency: 5-6 times per week [place]/Zoroastrian: Gnosticist Special enid needs: Yes (see Advanced directive) Seatbelt use: always 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
[2025-03-02 10:54] LABS: Lyme Ab w Rflx to Lyme Confirm Negative (Negative)
[2025-03-03 19:31] LABS: Anaplasma phagocytophilum Negative (Negative); B. miyamotoi PCR Negative (Negative); Babesia divergens/MO-1 Negative (Negative); Babesia duncani Negative (Negative); Babesia microti Negative (Negative); Ehrlichia chaffeensis Negative (Negative); Ehrlichia ewingii/canis Negative (Negative); Ehrlichia muris eauclairensis Negative (Negative)
== END 2025-03-01 13:16 | disposition home or self-care (01) ==
LOC: ER 17:35 → MS 17:49
PROVIDERS: Admitting Provider Hospitalist; Emergency Provider Physician Assistant; PCP Family Medicine; Responsible Provider Nurse Practitioner Acute Care; Visit Provider Hospitalist
DX: R41.82 Altered mental status, unspecified (principal); R41.3 Other amnesia; R47.89 Other speech disturbances; G43.909 Migraine, unspecified, not intractable, without status migrainosus; E03.9 Hypothyroidism, unspecified; I25.2 Old myocardial infarction; Z79.899 Other long term (current) drug therapy; E55.9 Vitamin D deficiency, unspecified; K90.829 Short bowel syndrome, unspecified; G62.9 Polyneuropathy, unspecified; N18.9 Chronic kidney disease, unspecified; G25.81 Restless legs syndrome
CPT/HCPCS: 00123; 36415; 70496; 70498; 80048; 80053; 80061; 80307; 87798; 93005; 93270; 99285; 81003; 81015; 82607; 83036; 83735; 84439; 84443; 84484; 85025; 86618; 87086; 93010; 99223; 99239; G0378; J3490

== ENCOUNTER 2025-03-10 01:50 | Outpatient (CLI) | payer MEDICARE, SELFPAY ==
--- NOTE | 2025-03-10 10:45 | DI.MRI_ITS ---
Exam(s) MR BRAIN WO EXAM: MR BRAIN WO CLINICAL HISTORY: altered mental status,tia,G45.9,R41.82 TECHNIQUE: Multiplanar multisequence MRI of the brain was performed. COMPARISON: MR MRI - BRAIN WO CONTRAST from 10/11/2017 MR MRA HEAD WO from 10/24/2017 MR MRI - BRAIN W CONTRAST from 10/24/[address] BRAIN NECK CTA from 02/28/2025 FINDINGS: VENTRICLES AND EXTRA AXIAL SPACES: Normal in size and morphology for the patient's age. MIDLINE SHIFT: None. CEREBRAL PARENCHYMA: No focus of restricted diffusion to suggest acute infarct. No space-occupying le robert identified. There again seen old lacune in the right cerebellum. There are few scattered hyperi ntense foci on the FLAIR and T2 weighted images in the white matter most consistent with chronic micr ovascular ischemic disease. HEMORRHAGE: None. BRAINSTEM/CEREBELLUM: Normal. CALVARIUM: Normal. VISUALIZED PARANASAL SINUSES/MASTOIDS:Clear. [place]: Normal flow void. [place]: Unremarkable. OTHER FINDINGS: None. IMPRESSION: 1. No acute intracranial process. 2. Old right cerebellar lacune. DATA REPOSITORY:
== END 2025-03-10 02:10 ==
LOC: DI 01:50
PROVIDERS: PCP Family Medicine; Visit Provider Family Medicine
DX: G45.9 Transient cerebral ischemic attack, unspecified (principal); R41.82 Altered mental status, unspecified
CPT/HCPCS: 70551

== ENCOUNTER 2025-03-19 02:27 | Outpatient (CLI) | payer MEDICARE, SELFPAY ==
--- NOTE | 2025-03-19 07:30 | DI.US_ITS ---
APPROVED REPORT EXAM: Comprehensive 2D, Doppler, and color-flow Echocardiogram Patient Location: Out-Patient Triple Drum Operator: Roseanne Paredes RDCS (AE) Indications: TIA, CVA Other Information Study Quality: Good Conclusion Normal left ventricular wall thickness and chamber size. Ejection fraction is 65 to 70%. Wall motio n is normal Normal right ventricular size and function Both atria are normal in size Trileaflet aortic valve with trace regurgitation Normal mitral valve, minimal mitral valve prolapse, mild mitral regurgitation Ascending aorta measures 3.76 cm Wall motion Left Ventricle The left ventricle is normal size. The left ventricular systolic function is normal. The left ventric ular ejection fraction is within the normal range. There is normal left ventricular wall thickness. T here is normal LV segmental wall motion. There is no ventricular septal defect visualized. LVEF is 65 -70%. Right Ventricle The right ventricle is normal size. The right ventricular systolic function is normal. Atria The left atrium size is normal. The right atrium size is normal. The interatrial septum is intact wit h no evidence for an atrial septal defect. Aortic Valve The aortic valve is normal in structure. Aortic valve is trileaflet. There is no aortic valvular sten osis. Trace aortic regurgitation. Mitral Valve No evidence of mitral valve stenosis. Mild mitral regurgitation. Mild mitral valve prolapse. Tricuspid Valve The tricuspid valve is normal in structure. There is no tricuspid valve stenosis. Trace to mild tricu spid regurgitation. Pulmonic Valve The pulmonary valve is normal in structure. There is no pulmonic valvular stenosis. There is no pulmo colleen valvular regurgitation. Great Vessels The aortic root is normal in size. The ascending aorta is mildly dilated. Aortic arch is not well vis ualized. IVC is normal in size and collapses >50% with inspiration. Pericardium There is no pericardial effusion. 2D Dimensions IVSD d PLAX 0.71 cm F: 0.6-1.0 Ao Root d 3.06 cm F: 2.7 - 3.3 LVPW d PLAX 0.70 cm F: 0.6 - 1.0 Ao Asc Diam d 3.76 cm F: 2.3 - 3.1 LVID d PLAX 4.70 cm F: 3.8 - 5.2 LVDs 2.96 cm F: 2.2 - 3.5 LV EF Teichholz 66.9 % FS 37.02 % LV EDV (Teich) 102.6 mL LV ESV (Teich) 34.0 mL M-Mode TAPSE 2.81 cm (M/F) >1.7 Auto EF LV EDV A4C 90.0 mL LV EDV A2C 116.0 mL LV EDV BP 101.8 mL LV ESV A4C 30.6 mL LV ESV A2C 33.3 mL LV ESV BP 31.6 mL LVEF(%) A4C 65.9 % LVEF(%) A2C 71.3 % LVEF(%) BP 69.0 % LV SV A4C 59.3 ml LV SV A2C 82.7 ml LV SV BP 70.3 ml LV CO A4C 4.1 L/min LV CO A2C 4.8 L/min LV CO BP 4.4 L/min HR A4C 68.81 BPM HR A2C 57.51 BPM LV EDV Index (BP) LA Volume LA Length A4C 3.8 cm LA Length A2C 5.2 cm LA Area A4C s 11.54 cm2 LA Area A2C s 15.96 cm2 LA Vol A4C A-L 30.10 mL LA Vol A2C A-L 41.73 mL LA Vol Biplane A-L 41.6 mL LA Vol/BSA A4C A-L LA Vol/BSA A2C A-L LA Vol/BSA BP A-L 23.4 mL/m2 LA Vol A4C MOD 28.3 mL LA Vol A2C MOD 38.5 mL LA Vol BP MOD 38.7 mL RA Volume RA Area A4C 12.4 cm2 RA ESV A4C (A-L) 33.1mL RA Vol/BSA A4C A-L RA Length A4C 3.9 cm RA ESV A4C (MOD) 30.5mL LV Diastology MV E' medial 0.092 (>0.07 m/s) MV E Vmax 0.70 (0.4-1.3 m/s) MV E/E' MED 7.56 (<14) MV A Vmax 0.65 (0.4-1.3 m/s) MV E' lateral 0.067 (>0.1 m/s) E/A Ratio 1.1 MV E/E' LAT 10.50 (<14) MV E' Average 0.080 m/s MV E/E'(average) 8.79 Aortic Valve AoV Vmax 1.05 m/s LVOT Vmax 0.82 m/s AoV Peak Grad 4.4 mmHg LVOT Peak Grad 2.7 mmHg AoV Area (Vmax) 2.40 cm2 LVOT VTI 0.221 m AoV VTI 0.280 m LVOT Mean Grad 1.5 mmHg AoV Mean Richard. 0.71 m/s LVOT SV 67.37 mL AoV Mean Grad 2.3 mmHg LVOT Diam s 1.95 cm AoV Area (VTI) 2.41 cm2 AV Regurg Peak Gr. 4.37 mmHg Velocity Ratio 0.78 Mitral Valve MV DT 305 (160-240 msec) MV Vmax TIPS 0.79 m/s MV Mean Grad 1.1 (<2mmHg) MV VTI 0.312 m Pulmonary Valve PV Vmax 0.68 (0.5-1.5 m/s) RVOT Vmax 0.61 m/s PV Peak Grad 1.9 mmHg RVOT Peak Gr. 1.5 mmHg PV Mean Richard 0.51 m/s RVOT VTI 0.157 m PV Mean Grad 1.1 mmHg RVOT Mean Gr. 1.0 mmHg Tricuspid Valve RA Pressure 3.00 mmHg TR Vmax 2.37 m/s TV S' 0.14 m/s TR Peak Grad 22.4 mmHg RVSP (TR) 25.4 mmHg
== END 2025-03-19 02:47 ==
LOC: DI 02:27
PROVIDERS: PCP Family Medicine; Visit Provider Internal Medicine Cardiovascular Disease
DX: G45.9 Transient cerebral ischemic attack, unspecified (principal); I63.9 Cerebral infarction, unspecified; I49.9 Cardiac arrhythmia, unspecified
CPT/HCPCS: 93306

== ENCOUNTER 2025-04-02 07:36 | Outpatient (CLI) | payer MEDICARE, SELFPAY ==
--- NOTE | 2025-04-02 11:37 | W.CARDEVENT ---
Date of service: 04/02/25 Time of Service: 11:38 Cardiac Event Recorder Referring Provider:: Carol Ann Shah Indications:: Altered mental status Cardiac Event Note: This is a cardiac event monitor. Patient was monitored for 22 days and 9 hours. Predominant rhythm was sinus. Average heart rate overall was 71. There was no significant bradycardia. There were no significant ventricular dysrhythmias. Supraventricular tachycardia was noted. Rate was approximately 185. This may have lasted for 10 minutes. It may have been atrial fibrillation or flutter There was no high-grade AV block, no pauses greater than 3 seconds. No symptoms were reported
== END 2025-04-02 07:37 | disposition home or self-care (01) ==
LOC: CARDOPNVT 07:36
PROVIDERS: PCP Family Medicine; Visit Provider Internal Medicine Cardiovascular Disease
DX: R41.82 Altered mental status, unspecified (principal)
CPT/HCPCS: 93272

== ENCOUNTER 2025-08-10 16:58 | Outpatient (REF) | payer MEDICARE, SELFPAY ==
--- NOTE | 2025-08-10 12:00 | SKI_PTH ---
PATIENT: Susannah Pinedo LOC: [facility] U#:[id number] AGE/SX: 75/F ROOM: RE08/10/[address]: Carol Ann Shah MD, [place] : 1950 BED: DIS: 08/10/2025 SPEC #: [id number] RECD: 08/10/25 17:31 STATUS: NAZIA RESuzanne #: [id number] STEPHANIA: 08/10/25 12:[address]: Carol Ann Shah DEPT: Surgical Specimen RECD BY: Siri Baltazar ENTERED: 08/10/25 17:33 SP TYPE: SKI OTHR DR: Severiano Crandall Tissues: 1 - SKIN BIOPSY(SHAVE/PUNCH) Procedures: SKIN LEVEL 4 Comments: [id number]
== END 2025-08-10 16:59 | disposition home or self-care (01) ==
LOC: LBN 16:58
PROVIDERS: PCP Family Medicine; Visit Provider Family Medicine
DX: L57.0 Actinic keratosis (principal)
CPT/HCPCS: 88305

== ENCOUNTER → 2025-09-03 02:07 | Outpatient (CLI) | payer MEDICARE, SELFPAY ==
--- NOTE | 2025-09-03 07:45 | DI.DEXA_ITS ---
Exam(s) XR DEXA BONE DENSITY W/WO MERLE EXAM: XR DEXA BONE DENSITY W/WO MERLE CLINICAL HISTORY: asymptomatic menopausal state, post menopausal; small bowel syndrome,z78.0 TECHNIQUE: Routine DEXA evaluation of the lumbar spine, hip, or forearm. COMPARISON: DX DEXA BONE DENSITY WITH MERLE from 01/04/2016 FINDINGS: Performed on a HoloDestinationRX unit. Lateral image: No compression fracture evident. Lumbar Spine total T-score: 0.6 which is in normal range. The prior reading in 2016 was 0.9 Hip total T-score:-1.2 which is osteopenia range. The prior reading in 2016 was -0.8 which was within normal range at that time. Independent reading at the level of the femoral neck yields T-score of -1.4 which is osteopenia range. The prior reading in 2016 was -0.8 which was within normal range at that time. Forearm total T-score: -1.0 which is low normal range. The prior 2016 study did not include the wrist-forearm IMPRESSION: Bone mineral density measures in the osteopenia range for the hip. Fracture risk is moderate at this level. Readings in 2016 at the hip level were within normal range. Bone mineral density measures in the normal range for lumbar spine. Fracture risk is low at this level. Bone mineral density measures in the low normal range for the wrist-forearm. Fracture risk is low at this level. Note: Any spine fracture indicates 5x risk for subsequent spine fracture and 2x risk for subsequent hip fracture. World Health Organization criteria for BMD interpretation classify patients: Normal...... T- Score at or above -1.0 Osteopenic... T- Score between -1.0 and -2.5 Osteoporosis... T-Score at or below -2.5
--- NOTE | 2025-09-03 07:45 | DI.MAMMO_ITS ---
Exam(s) MAMMO SCREENING EXAM: MAMMO SCREENING CLINICAL HISTORY: screening,z12.39 TECHNIQUE: Bilateral full field digital CC and MLO mammographic images were obtained with 3D tomosynthesis and utilizing computer aided detection (CAD). COMPARISON: Comparison is made with prior examinations. FINDINGS: Masses/Architectural Distortion: No suspicious masses or areas of architectural distortion are present. The left biopsy clip is in the stable position. Microcalcifications: No suspicious pleomorphic-type are seen. Skin Thickening/Nipple Retraction: None. IMPRESSION: 1. No significant interval change with no specific features of malignancy noted. 2. Unless there is more urgent need, screening mammography is recommended, as per [place] [employer] guidelines. BI-RADS Category 1 - Negative Breast Density - Category B - There are scattered areas of fibroglandular density. Breast density Category C or D implies that the patient has dense breast tissue. Dense breast tissue can make it harder to find cancer on a mammogram. Dense breast tissue is also associated with an increased risk of breast cancer. This information about the result of the mammogram report was provided to the patient to raise their awareness. Use this report when you speak with the patient about their risks for breast cancer, which includes their family history. At that time, you may recommend additional screening tests (Ultrasound or MRI) as these tests may add significant information. A negative radiographic report should not delay biopsy if a dominant or clinically suspicious mass is present. Up to ten percent of cancers are not identified on mammography. A negative report may reinforce clinical impression. Adenosis and dense breasts may obscure an underlying neoplasm. False positive reports average 6 to 10%. Patient will receive a letter notifying them of these results.
== END ==
LOC: DI 02:08
PROVIDERS: PCP Family Medicine; Visit Provider Family Medicine
DX: Z78.0 Asymptomatic menopausal state (principal); Z12.31 Encounter for screening mammogram for malignant neoplasm of breast
CPT/HCPCS: 77063; 77067; 77080

== ENCOUNTER 2025-09-14 11:18 | Outpatient (REF) | payer MEDICARE, SELFPAY ==
--- NOTE | 2025-09-14 10:00 | SKI_PTH ---
PATIENT: Susannah Pinedo LOC: N U#:[id number] AGE/SX: 75/F ROOM: RE09/14/[address]: Carol Ann Shah MD, DC : 1950 BED: DIS: 09/14/2025 SPEC #: [id number] RECD: 09/14/25 17:30 STATUS: NAZIA RESuzanne #: [id number] STEPHANIA: 09/14/25 10:[address]: Carol Ann Shah DEPT: Surgical Specimen RECD BY: Lucy Wen Tissues: 1 - SKIN BIOPSY(SHAVE/PUNCH) Procedures: SKIN LEVEL 4 Comments: [id number]
== END 2025-09-14 11:19 | disposition home or self-care (01) ==
LOC: LBN 11:18
PROVIDERS: PCP Family Medicine; Visit Provider Family Medicine
DX: L57.0 Actinic keratosis (principal)
CPT/HCPCS: 88305